=== PATIENT | female | born 1950 | race Caucasian/White ===

== ENCOUNTER → 2024-08-25 06:17 | Outpatient (REF) | payer MEDICARE, BC, SELFPAY | LOC: RAD 06:17 | PROVIDERS: ATTENDING PHYSICIAN Internal Medicine Cardiovascular Disease; FAMILY PHYSICIAN Family Medicine | DX: I65.23 Occlusion and stenosis of bilateral carotid arteries (principal); Z98.890 Other specified postprocedural states; I25.10 Atherosclerotic heart disease of native coronary artery without angina pectoris | CPT/HCPCS: 93880; 93922 ==

== ENCOUNTER → 2025-02-28 08:46 | Outpatient (REF) | payer MEDICARE, BC, SELFPAY | LOC: HWRCS 08:46 | PROVIDERS: ATTENDING PHYSICIAN Family Medicine | DX: J18.9 Pneumonia, unspecified organism (principal) | CPT/HCPCS: 93306 ==

== ENCOUNTER 2025-06-16 22:09 | Inpatient (IN) | payer MEDICARE, BC, SELFPAY ==
[2025-06-16 18:50] VITALS: BP 149/70
[2025-06-16 19:07] VITALS: BP 181/73
[2025-06-16 19:10] VITALS: BMI 30.8
--- NOTE | 2025-06-16 19:14 | ED.GENMED ---
History of Present Illness
<Jeffery Hernández PA-C - Last Filed: 06/16/25 21:23>
General
Chief Complaint: Breathing Problem
Source: patient
Exam Limitations: none
Time Seen by Provider: 06/16/25 19:02
History of Present Illness
History of Present Illness:
74-year-old female presents with increased leg swelling and shortness of breath worsening over the past 5 to 6 days. She has a history of primary biliary cirrhosis, Sjogren's, Jose's, CAD, hypertension and kidney transplant. She has been on
and off different blood pressure medicines include losartan nifedipine now olmesartan and hydrochlorothiazide. Due to the swelling, her family doctor started her on Lasix yesterday she took 20 yesterday and 20 today without any relief. She
describes orthopnea. She denies a fever. No chest pain. No other complaints
Past History
<Jeffery Hernández PA-C - Last Filed: 06/16/25 21:23>
Past History
ED Past Medical History: None
ED Past Surgical History: None
Social History
Tobacco: Non-smoker
Alcohol: None
Drug: None
Personal:
Living: with family
Phy Exam
<CLAIR Piper Last Filed: 06/16/25 21:23>
Physical Exam
Physical Exam:
General: Well-appearing female with increased work of breathing
HEENT normal cephalic atraumatic
Heart: Regular rate and rhythm lungs: Mostly clear no obvious wheeze or rails
Abdomen is soft nontender extremities: Pitting edema bilateral lower extremities
Skin is warm no rash
Scores
<Jeffery Hernández PA-C - Last Filed: 06/16/25 21:23>
Heart Failure Risk
Heart Failure Risk Score: Not Applicable
Course
<Jeffery Hernández PA-C - Last Filed: 06/16/25 21:23>
Orders/Labs/Results
Orders:
Orders
06/16/25 19:00
Electrocardiogram (*1) Urgent
Reason for Study: Shortness of Breath
06/16/25 19:01
EKG- Treatment ONCE
06/16/25 19:12
CR Chest Portable - 1 View Urgent
Comment:
Reason For Exam: sob
Reason Study Needs to be Portable: Patient Unstable
06/16/25 19:20
COVID-19 Antigen Urgent
Source: Nasal Swab
Complete Blood Count/With Diff Urgent
Comprehensive Metabolic Panel Urgent
NT-proBNP Urgent
Troponin I Urgent
Influenza A+B Rapid Molecular Urgent
SUKHI Source: Nasal Swab
Specimen Description:
06/16/25 20:43
Bladder Scan- Treatment ONCE
06/16/25 20:44
CT Abd/pel Without Iv Or Oral Urgent
Comment:
Reason For Exam: everton
Furosemide [Lasix] 40 mg IV NOW STA
06/16/25 21:14
PTT Urgent
Comment: Obtain baseline before beginning heparin infusion if not already collected
Aspirin 325 mg PO NOW STA
Heparin 4,000 units IV NOW STA
Pharmacy Request to Place See Dose Instructions PO NOW STA
Discontinue all Active Warfarin orders?: Yes
Nursing to Place Non Medication Order As Directed
Physician Order: PTT 6 hours after initial start of Heparin infusion
06/16/25 21:15
Heparin 05464 Units/250 ml 25,000 units in 250 ml IV PER PROTOCOL
Weight to be used for heparin protocol in kilograms (kg):: 66.8
Protocol:: Cardiac Tx/Acute Coronary
PTT Goal Range to be used:: PTT 73 to 111 seconds
Order type:: Initial
INITIAL Infusion Dose (UNITS/KG/hr) & then follow protocol:: 12 units/kg/hr
Infusion Dose in UNITS/hr & then follow protocol (UNITS/hr):: 800
INFUSION RATE in mL/hr & then follow protocol (mL/hr):: 8
PTT less than or equal to 64 seconds:: Increase rate by 200 units/hr (+ 2 mL/hr)
PTT 64.1 to 72.9 seconds:: Increase rate by 100 units/hr (+ 1 mL/hr)
PTT 73 to 111 seconds:: Target Range. No change in rate.
PTT 111.1 to 130.9 seconds:: Decrease rate by 100 units/hr (- 1 mL/hr)
PTT 131 to 199.9 seconds:: HOLD for 1 hr. Then decrease rate by 200 units/hr (- 2 mL/hr)
PTT greater than or equal to 200 seconds:: HOLD for 2 hrs & Notify Provider. Then decrease by 200 units/hr (-
2 mL/hr)
Lab follow-up:: Each change, PTT q6h until 2 consecutive are therapeutic. Then PTT
daily.
06/16/25 22:[address] See Dose Instructions IV DIRECTED
Abnormal Lab Results
06/16/25
19:20
WBC 11.0 H 10^3/uL
(4.8-10.8)
RBC 3.11 L 10^6/uL
(4.20-5.40)
Hgb 8.9 L g/dL
(12.0-16.0)
Hct 27.3 L %
(37.0-47.0)
MCHC 32.6 L g/dL
(33.0-37.0)
MPV 11.0 H fL
(7.4-10.4)
Absolute Neuts (auto) 8.1 H 10^3/uL
(1.4-6.5)
Absolute Monos (auto) 1.0 H 10^3/uL
(0.1-0.6)
Lymphocytes % 12.1 L %
(20.5-51.1)
Chloride 108 H mmol/L
(98-107)
BUN 55 H mg/dl
(7-17)
Creatinine 3.0 H mg/dL
(0.6-1.0)
Glucose 146 H mg/dl
(70-99)
Troponin I 6.360 H* ng/ml
Total Protein 5.8 L g/dl
(6.3-8.2)
Albumin 3.1 L g/dl
(3.5-5.0)
06/16/25 19:20
06/16/25 19:20
Vital Signs
Initial and Last Documented VS:
Initial Vital Signs
Temp Pulse Resp BP Pulse Ox
98.0 F 69 24 149/70 97
06/16/25 18:50 06/16/25 18:50 06/16/25 18:50 06/16/25 18:50 06/16/25 18:50
Last Documented Vital Signs
Temp Pulse Resp BP Pulse Ox
98.0 F 69 16 163/68 98
06/16/25 18:50 06/16/25 21:03 06/16/25 20:45 06/16/25 21:03 06/16/25 20:45
<Marek H. Kim, DO - Last Filed: 06/16/25 21:01>
Orders/Labs/Results
Orders:
Orders
06/16/25 19:00
Electrocardiogram (*1) Urgent
Reason for Study: Shortness of Breath
06/16/25 19:01
EKG- Treatment ONCE
06/16/25 19:12
CR Chest Portable - 1 View Urgent
Comment:
Reason For Exam: sob
Reason Study Needs to be Portable: Patient Unstable
06/16/25 19:20
COVID-19 Antigen Urgent
Source: Nasal Swab
Complete Blood Count/With Diff Urgent
Comprehensive Metabolic Panel Urgent
NT-proBNP Urgent
Troponin I Urgent
Influenza A+B Rapid Molecular Urgent
SUKHI Source: Nasal Swab
Specimen Description:
06/16/25 20:43
Bladder Scan- Treatment ONCE
06/16/25 20:44
CT Abd/pel Without Iv Or Oral Urgent
Comment:
Reason For Exam: everton
Furosemide [Lasix] 40 mg IV NOW STA
06/16/25 21:14
PTT Urgent
Comment: Obtain baseline before beginning heparin infusion if not already collected
Aspirin 325 mg PO NOW STA
Heparin 4,000 units IV NOW STA
Pharmacy Request to Place See Dose Instructions PO NOW STA
Discontinue all Active Warfarin orders?: Yes
Nursing to Place Non Medication Order As Directed
Physician Order: PTT 6 hours after initial start of Heparin infusion
06/16/25 21:15
Heparin [id number] Units/250 ml 25,000 units in 250 ml IV PER PROTOCOL
Weight to be used for heparin protocol in kilograms (kg):: 66.8
Protocol:: Cardiac Tx/Acute Coronary
PTT Goal Range to be used:: PTT 73 to 111 seconds
Order type:: Initial
INITIAL Infusion Dose (UNITS/KG/hr) & then follow protocol:: 12 units/kg/hr
Infusion Dose in UNITS/hr & then follow protocol (UNITS/hr):: 800
INFUSION RATE in mL/hr & then follow protocol (mL/hr):: 8
PTT less than or equal to 64 seconds:: Increase rate by 200 units/hr (+ 2 mL/hr)
PTT 64.1 to 72.9 seconds:: Increase rate by 100 units/hr (+ 1 mL/hr)
PTT 73 to 111 seconds:: Target Range. No change in rate.
PTT 111.1 to 130.9 seconds:: Decrease rate by 100 units/hr (- 1 mL/hr)
PTT 131 to 199.9 seconds:: HOLD for 1 hr. Then decrease rate by 200 units/hr (- 2 mL/hr)
PTT greater than or equal to 200 seconds:: HOLD for 2 hrs & Notify Provider. Then decrease by 200 units/hr (-
2 mL/hr)
Lab follow-up:: Each change, PTT q6h until 2 consecutive are therapeutic. Then PTT
daily.
06/16/25 22:[address] See Dose Instructions IV DIRECTED
Abnormal Lab Results
06/16/25
19:20
WBC 11.0 H 10^3/uL
(4.8-10.8)
RBC 3.11 L 10^6/uL
(4.20-5.40)
Hgb 8.9 L g/dL
(12.0-16.0)
Hct 27.3 L %
(37.0-47.0)
MCHC 32.6 L g/dL
(33.0-37.0)
MPV 11.0 H fL
(7.4-10.4)
Absolute Neuts (auto) 8.1 H 10^3/uL
(1.4-6.5)
Absolute Monos (auto) 1.0 H 10^3/uL
(0.1-0.6)
Lymphocytes % 12.1 L %
(20.5-51.1)
Chloride 108 H mmol/L
(98-107)
BUN 55 H mg/dl
(7-17)
Creatinine 3.0 H mg/dL
(0.6-1.0)
Glucose 146 H mg/dl
(70-99)
Troponin I 6.360 H* ng/ml
Total Protein 5.8 L g/dl
(6.3-8.2)
Albumin 3.1 L g/dl
(3.5-5.0)
06/16/25 19:20
06/16/25 19:20
Vital Signs
Initial and Last Documented VS:
Initial Vital Signs
Temp Pulse Resp BP Pulse Ox
98.0 F 69 24 149/70 97
06/16/25 18:50 06/16/25 18:50 06/16/25 18:50 06/16/25 18:50 06/16/25 18:50
Last Documented Vital Signs
Temp Pulse Resp BP Pulse Ox
98.0 F 69 16 163/68 98
06/16/25 18:50 06/16/25 21:03 06/16/25 20:45 06/16/25 21:03 06/16/25 20:45
<Jeffery Hernández PA-C - Last Filed: 06/16/25 21:23>
MDM/Problems Addressed
Differential Diagnosis Includes:
Patient here with shortness of breath and leg swelling. Consider volume overload, CHF, CAD, COVID or flu or pneumonia. Chest x-ray ordered will check labs. EKG shows sinus rhythm with a rate of 70 no acute ischemic changes noted
<Jeffery Hernández PA-C - Last Filed: 06/16/25 21:23>
*Pulse Oximetry
SaO2: 97
Oxygen Mode of Delivery: Room air
Patient hypoxic: no
*Critical Care Note
Total Time (30-74mins, 75-104mins- exclusive of procedures): Not Applicable
<Jeffery Hernández PA-C - Last Filed: 06/16/25 21:23>
Update Note
Update Note:
Workup reviewed. BNP is over 27,000. Troponin is elevated at 6.36. Discussed with emergency room attending as well as cardiology, Dr. Winn. Lasix was ordered for CHF. Heparin was also ordered with aspirin. Cardiology prefers to trend the
troponin and if going down heparin can be stopped. Patient was admitted to hospital for CHF
ED Attending Note
<Jeffery Hernández PA-C - Last Filed: 06/16/25 21:23>
-
Portions of this chart may have been created with voice recognition software.� Occasional wrong word or��sound alike� substitutions may have occurred due to the inherent limitations of voice recognition software.
<Marek Alvarez DO - Last Filed: 06/16/25 21:01>
ED Attending Note
Patient seen and examined by attending physician: Yes
I performed the substantive portion of visit, reviewed & personally made and approve the management plan that is documented in note by myself or CLIVE.: Yes
ED Attending Note:
I agree with Armin's note
Patient presents complaining of increasing shortness of breath. Patient began noticing shortness of breath on Friday and symptoms have progressed each day since then. She cannot sleep because she cannot lie flat. She is only able to breathe
more comfortably when she is sitting up. Patient has a history of a kidney transplant in 2008. She has had an elevated creatinine recently. She is followed by Dr Velarde.patient also sees Dr. Beatris Chandler for cardiology. Patient had some
medication adjustments over the past few weeks due to some peripheral edema. She was started on Lasix yesterday by her primary care provider. She did not notice any change but only had a dose or 2. No chest pain.
General: Awake, Alert, Oriented X3. No acute distress.
Vitals: unremarkable
Head: Atraumatic
Eyes: Pupils equal, EOMI
Throat: Airway intact, no exudates
Neck: Trachea midline
Lungs: Crackles bilaterally
Heart: Regular rate, no murmurs
Abd: Soft, Nontender, No pulsatile mass
Neuro: Nonfocal
Skin: Warm, dry, no rash
Extremities: pulses equal b/l, 2+ edema
No acute ischemic changes on her EKG. Essentially unchanged previous EKG. Labs show mild anemia with a hemoglobin 8.9. Her BUN and creatinine are elevated 55 and 3.0. This appears to be higher than her most recent creatinine as an outpatient
based upon her report. BN P is greater than 27,000. Troponin noted to be quite elevated at 6.3. Without any ischemic changes on her EKG this may be related to heart strain and renal insufficiency. Elise discussed with cardiology whether we
should anticoagulate or not. Will certainly start IV diuresis. Patient will obviously require hospitalization
Discharge Plan
Departure
Patient Disposition: Admit
Date of Disposition: 06/16/25
Time of Disposition: 21:22
Presentation/result/management discussed w/ accepting MD/DO: Hospitalist
Discharge Problem:
CHF (congestive heart failure)
Prescriptions:
No Action
carvedilol [Coreg] 25 MG tablet
25 mg PO BID
esomeprazole magnesium [Nexium] 40 MG capsule,delayed release(DR/EC)
40 mg PO .DAILY AT 1900
cevimeline [Evoxac] 30 MG capsule
30 mg PO TID
lysine [L-Lysine] 500 MG tablet
500 mg PO .DAILY AT 1900
cyclosporine [Restasis] 1 EACH dropperette
1 ea BOTH EYES BID
cetirizine 10 MG tablet
10 mg PO .DAILY AT 1900
alendronate 35 MG tablet
35 mg PO .EVERY FRIDAY
levothyroxine 88 MCG tablet
88 mcg PO DAILY
fluticasone propionate 1 SPRAY spray,suspension
1 spray intranasal BID
tacrolimus 0.5 MG capsule
1 cap PO .DAILY AT 1900
tacrolimus 0.5 MG capsule
2 cap PO .DAILY IN A.M.
mycophenolate sodium [Myfortic] 180 MG tablet,delayed release (DR/EC)
3 tab PO BID
ursodiol [JEANCARLOS Forte] 500 MG tablet
500 mg PO BID
[place]ock 3-6-9 Complex Softgel
3 cap PO BID
Slow Fe
1 tab PO .DAILY AT 1900
Vitamin B Complex
1 cap PO .DAILY AT 1900
calcitriol 0.25 MCG capsule
1 tab PO .MON/FRI/FRI
amlodipine 5 MG tablet
5 mg PO BID Qty: 0 0RF
aspirin 325 MG tablet,delayed release (DR/EC)
325 mg PO DAILY Qty: 0 0RF
losartan [Cozaar] 50 MG tablet
50 mg PO BID Qty: 60 0RF
Referrals:
Luigi Griffith MD [Family Provider, Family Practice]
Interventions
Interventions:
*Risk Screen - Suicide Last Done: 06/16/25 18:50
*General Assessment Last Done: 06/16/25 19:10
*Neglect/Abuse Screening Last Done: 06/16/25 18:50
*ED- Fall Risk Assessment Last Done: 06/16/25 19:10
*ED COVID-19 Vaccine History Last Done: 06/16/25 19:10
*ED Influenza Vaccine History Last Done: 06/16/25 19:10
ED- Cardiac Assessment Last Done: 06/16/25 19:27
ED- Pulmonary Assessment Last Done: 06/16/25 19:27
Discharge Date and Time
Print Language: TAJIK
[2025-06-16 19:43] LABS: Hematocrit 27.3 % (37.0-47.0); Hemoglobin 8.9 g/dL (12.0-16.0); Mean Corp Hgb Conc. 32.6 g/dL (33.0-37.0); Mean Corpuscular Volume 87.8 fL (81.0-99.0); Nucleated Red Blood Cells % 0 %; Platelet Count 215 10^3/uL (130-400); Red Cell Dist. Width 13.4 % (11.5-14.5)
[2025-06-16 19:46] LABS: COVID-19 Antigen Negative (Negative)
[2025-06-16 19:57] LABS: ALT (SGPT) 21 U/L (0-35); AST (SGOT) 28 U/L (14-36); Albumin 3.1 g/dl (3.5-5.0); Alkaline Phosphatase 69 U/L (38-126); Blood Urea Nitrogen 55 mg/dl (7-17); Calcium 8.8 mg/dl (8.4-10.2); Carbon Dioxide 26 mmol/L (22-30); Chloride 108 mmol/L (98-107); Estimated Creatinine Clearance 13 ml/min; Glucose 146 mg/dl (70-99); Potassium 4.0 mmol/L (3.5-5.1); Sodium 137 mmol/L (135-145); Total Protein 5.8 g/dl (6.3-8.2); eGFR 15.82
[2025-06-16 20:00] VITALS: BP 138/61
[2025-06-16 20:18] LABS: Troponin I 6.360 ng/ml
[2025-06-16 21:03] VITALS: BP 163/68
[2025-06-16] MEDS: LASIX 40 MG IV (21:03)
[2025-06-16] MEDS: ASPIRIN 325 MG PO (21:22)
[2025-06-16] MEDS: HEPARIN 25000 UNITS/250 ML IV (21:52)
[2025-06-16] MEDS: HEPARIN 4000 UNITS IV (21:52)
--- NOTE | 2025-06-16 22:02 | HPS.HSE ---
Family Physician
-
Family Physician: Luigi Griffith
Chief Complaint
-
SOB, Swelling
History of Present Illness
Patient is a 74y F with PMH significant for CKD IV s/p renal transplant, ASCVD and hypertension who presents to ED complaining of LE swelling and SOB. Patient states that her symptoms started Friday and have been progressive since that time.
Patiet states that her BP medications were changed about one week prior to these symptoms. She notes a similar episode with addition of nifedipine a few years ago. This resolved with cessation of that medication.
Patient states that her losartan was changed to olmesartan and hydralazine about 2 weeks ago. Since the beginning of this week, she has returned to her prior regimen of losartan.
Patient denies any other recent medication changes.
She denies any chest pain. She has a cough - which is also new / worse since this past weekend.
She denies any fevers / chills, no GI complaints.
She has noted decreased frequency / volume of urination for the past 4-5 days as well.
Medical History
Past Medical History
Past Medical History: Reports Other
Additional Past Medical History:
Polycystic Kidney Disease s/p Renal Transplant
CKD IV
Hypertension
Primary Biliary Cirrhosis
Sjogren's Disease
ASCVD (CAD, Carotid Disease)
HFrEF
GAVE, GERD, Blackburn's Esophagus
Hypothyroidism
Jose's Thyroiditis
Iron Deficiency Anemia
Diverticular Disease
Past Surgical History: Reports Other
Additional Past Surgical History:
Renal Transplant (2008)
Right CEA
LUE AVF / Subsequent AVF Ligation
Skin Cancer Excisions
Cholecystectomy
Carpal Tunnel Release
Social History
Tobacco: Non-smoker
Alcohol: None
Drug: None
Family History
Family History: Not pertinent
Allergies / Home Medications
Allergies reflects when Allergies were last updated in [facility].
Home Medications with original date entered in [facility]
Allergy/Medication List:
Allergies
Allergy/AdvReac Type Severity Reaction Status Date / Time
No Known Drug Allergies Allergy NKDA Verified 06/16/25 18:50
Home Medications
cyclosporine 0.05 % eye drops in a dropperette (Restasis) 1 ea BOTH EYES BID 08/10/08
esomeprazole magnesium 40 mg capsule,delayed release (Nexium) [place] [address]/10/08
lysine 500 mg tablet (L-Lysine) 500 [place] .[place] [address]/10/08
fluticasone propionate 50 mcg/actuation nasal spray,suspension 1 spray intranasal DAILY 11/10/13
levothyroxine 88 mcg tablet 88 mcg PO DAILY 11/10/13
tacrolimus 0.5 mg capsule, immediate-release 1 cap PO HS 11/10/13
tacrolimus 0.5 mg capsule, immediate-release 1 cap PO Q OTHER DAY 11/10/13
losartan 50 mg tablet (Cozaar) 50 mg PO BID #60 tabs 11/18/13
Mycophenolate 360 mg PO BID 06/16/25
Vitamin B Complex 1 tab PO DAILY 06/16/25
aspirin 81 mg tablet 81 mg PO DAILY 06/16/25
carvedilol 25 mg tablet 25 mg PO BID 06/16/25
cetirizine 10 mg tablet (Zyrtec) 10 mg PO DAILY 06/16/25
cevimeline 30 mg capsule 1 cap PO TID 06/16/25
cholecalciferol (vitamin D3) 125 mcg (5,000 unit) tablet (Vitamin D3) 125 mcg PO QMWF 06/16/25
magnesium 500 mg PO DAILY 06/16/25
montelukast 10 mg tablet (Singulair) 10 mg PO DAILY 06/16/25
sodium bicarbonate 650 mg PO BID 06/16/25
ursodiol 500 mg tablet 500 mg PO BID 06/16/25
Review of Systems
-
History Source: Patient
A 12 point ROS was completed and negative except as noted: Yes
Constitutional: Reports Fatigue; Denies Fever or Chills
EENT: Denies Sore Throat
Respiratory: Reports Cough and Trouble Breathing; Denies Hemoptysis
Cardiac: Denies Chest Pain, Diaphoresis, Palpitations or Syncope
Abdomen/GI: Denies Abdominal Pain, Nausea, Vomiting or Diarrhea
: Reports Other (Decreased urination); Denies Dysuria, Frequency or Flank Pain
Musculoskeletal: Reports Edema; Denies Joint Pain
Neurological: Denies Dizzy or Headache
Psych: Denies Depression or Anxiety
Physical Exam
Vital Signs
Vital Signs
Temp Pulse Resp BP Pulse Ox
98.0 F 69 16 163/68 98
06/16/25 18:50 06/16/25 21:03 06/16/25 20:45 06/16/25 21:03 06/16/25 20:45
Physical Exam
General: Other (74y F in no acute distress.)
HEENT: Moist mucous membranes, PERRLA and Other (Pos JVD / HJR)
Respiratory: Other (Decreased at bases - otherwise clear.)
Cardiac: S1/S2 and Regular Rhythm; No Murmur
GI: Soft, Non Tender, Non Distended and Normal Bowel Sounds
Musculoskeletal: No Clubbing, No Cyanosis and Other (2+ pitting edema b/l LEs to the mid-story.)
Neuro: AO x 3
Laboratory Results
-
06/16/25 19:20
06/16/25 19:20
Laboratory Results
Total Bilirubin 1.0 mg/dl (0.2-1.3) 06/16/25 19:20
AST 28 U/L (14-36) 06/16/25 19:20
ALT 21 U/L (0-35) 06/16/25 19:20
Alkaline Phosphatase 69 U/L (38-126) 06/16/25 19:20
Troponin I 6.360 ng/ml H* 06/16/25 19:20
Impression/Plan
-
A/P: Patient is a 74y F with PMH significant for CKD s/p renal transplant, ASCVD and hypertension who presents to ED complaining of LE swelling and SOB since this past weekend.
Acute on Chronic HFrEF / Volume Overload
Abnormal Troponin likely secondary to CHF / CKD
- Admit for further evaluation and treatment.
- Increased edema / dyspnea and decreased urine output for the past 5-6 days.
- Continue IV Lasix BID and follow I/Os, daily weights, etc.
- Update Echo - last in 02/2025 with LVEF = 30-35%, not significantly changed from study in 2008.
- Cardiology evaluation for additional recommendations.
- Troponin elevation likely a reflection of CHF + CKD. No current chest pain, etc.
- IV heparin for now per Cardiology recs.
- Follow troponin to peak and stop heparin once down-trending.
MIRLANDE on CKD IV
s/p Renal Transplant
Chronic Metabolic Acidosis
Polycystic Kidney Disease
- SCr = 3 compared to recent baseline of 2.3 (per patient).
- Notes indicate gradual loss of GFR over the past months / years, with discussion re: likelihood of future HD requirements.
- Hold ARB acutely.
- IV diuresis as noted above.
- Nephrology evaluation for additional recommendations.
- Followed locally by Dr. Velarde. Also follows with [facility].
- Continue current anti-rejection med regimen without changes.
- Follow for changes in renal function.
- Outpatient comparison labs, imaging, etc would be beneficial.
Benign Hypertension
- Elevated at present - in part due to volume overload.
- IV diuresis as noted above.
- Follow for improvement.
- Adjust BP med regimen as needed for improved control.
ASCVD
- Prior h/o CAD, carotid disease, etc.
- Continue ASA, carvedilol, etc.
- IV heparin for now / trending troponin as noted above.
- Prior h/o PTCA with balloon angio and no stent.
Hypothyroidism
- Continue current T4 replacement.
- Update TFTs.
GERD / Blackburn's Esophagus / GAVE
- Holding PPI acutely.
- Follow for any new symptoms.
Primary Biliary Cirrhosis
Sjogren's Syndrome
- Stable.
DVT Prophylaxis: On IV heparin at present.
Code Status: Full
[2025-06-16 22:59] LABS: APTT 31.9 Sec (23.4-35.0)
[2025-06-16 23:50] VITALS: BMI 30.1
[2025-06-16 23:51] VITALS: BP 163/80
--- NOTE | 2025-06-17 00:47 | PTCARENOTE ---
A/P: Patient is a 74y F with PMH significant for CKD s/p renal transplant, ASCVD and hypertension who presents to ED complaining of LE swelling and SOB since this past weekend.
Acute on Chronic HFrEF / Volume Overload
Abnormal Troponin likely secondary to CHF / CKD
- Admit for further evaluation and treatment.
- Increased edema / dyspnea and decreased urine output for the past 5-6 days.
- Continue IV Lasix BID and follow I/Os, daily weights, etc.
- Update Echo - last in 02/2025 with LVEF = 30-35%, not significantly changed from study in 2008.
- Cardiology evaluation for additional recommendations.
- Troponin elevation likely a reflection of CHF + CKD. No current chest pain, etc.
- IV heparin for now per Cardiology recs.
- Follow troponin to peak and stop heparin once down-trending.
--- NOTE | 2025-06-17 00:48 | PTCARENOTE ---
Rec'd patient from ER. AAOx3. stable vitals. SOB with activity. SR in 60s on tele. No c/o pain. POC reviewed with patient.
[2025-06-17] MEDS: PROGRAF PO (00:53)
[2025-06-17 02:03] LABS: Troponin I 6.390 ng/ml
[2025-06-17 03:05] VITALS: BP 159/76
[2025-06-17] MEDS: ROBITUSSIN DM 5 ML PO (04:00)
[2025-06-17 04:52] VITALS: BMI 29.4
[2025-06-17 05:02] LABS: APTT 124.0 Sec (23.4-35.0)
[2025-06-17] MEDS: SYNTHROID 88 MCG PO (05:30)
[2025-06-17 06:49] LABS: Troponin I 6.140 ng/ml
[2025-06-17 07:19] VITALS: BP 165/77
[2025-06-17 07:49] LABS: Blood Urea Nitrogen 55 mg/dl (7-17); Calcium 8.5 mg/dl (8.4-10.2); Carbon Dioxide 26 mmol/L (22-30); Chloride 109 mmol/L (98-107); Estimated Creatinine Clearance 13 ml/min; Glucose 94 mg/dl (70-99); HDL Cholesterol 34 mg/dl; Iron 45 ug/dl (37-170); LDL Cholesterol, Calculated 90 mg/dl; Magnesium 1.6 mg/dl (1.6-2.3); Potassium 4.1 mmol/L (3.5-5.1); Sodium 139 mmol/L (135-145); Very Low Density Lipoprotein 24 mg/dl (0-30); eGFR 15.82
[2025-06-17 07:58] LABS: Total Iron Binding Capacity 256 ug/dl (265-497)
[2025-06-17 08:24] LABS: Ferritin 37.9 ng/ml (11.1-264.0)
[2025-06-17] MEDS: URSO 500 MG PO ×2 (09:13→20:14)
[2025-06-17] MEDS: SINGULAIR 10 MG PO (09:14)
[2025-06-17] MEDS: RESTASIS 0.05% OPHTHALMIC EMULSION 1 DROPS BOTH EYES ×2 (09:14→20:15)
[2025-06-17] MEDS: MAGNESIUM OXIDE 400 MG PO (09:14)
[2025-06-17] MEDS: COREG 25 MG PO ×2 (09:14→20:14)
[2025-06-17] MEDS: ASPIR LOW (ENTERIC COATED) 81 MG PO (09:14)
[2025-06-17] MEDS: SODIUM BICARBONATE 650 MG PO ×2 (09:14→20:14)
[2025-06-17] MEDS: LASIX 40 MG IV ×2 (09:15→15:25)
[2025-06-17] MEDS: VITAMIN D3 (cholecalciferol) 125 MCG PO (09:16)
[2025-06-17] MEDS: PROGRAF 0.5 MG PO ×2 (09:16→21:27)
--- NOTE | 2025-06-17 10:36 | W.CON.NEPH ---
Consultation
-
Date/Time Consultation Requested: 06/17/2025 7 AM
Date/Time Consultation Performed: 06/17/2025 10 AM
Requesting Provider: Dr. King
Performing Provider: Dr. Vazquez
Reason for Consultation: Renal transplant
Medical History
-
Chief Complaint: Shortness of breath
History of Present Illness:
This is a 74-year-old female who has history of ADPKD who subsequently underwent living related renal transplant from her brother in 2008. Over time her renal function is slowly declining now at CKD 4 with subnephrotic range proteinuria. She did
have a biopsy which had revealed chronic kidney disease progression. Most recent creatinine in 09.16. At her office visit however she was noted to be significantly hypertensive with systolics close to 200. Her losartan was then changed to
Benicar. Patient states that over the next week she developed significant edema and progressive shortness of breath. She had then discontinued Benicar and hydralazine and gone back to losartan. Unfortunately, her symptoms did not improve when she
came to the emergency room. She was felt to be in pulmonary edema and she was also noted to have elevated troponin at over 6.0. She also had acute kidney injury with a creatinine of 3.0.
Past Medical History
Polycystic Kidney Disease s/p Renal Transplant
CKD IV
Hypertension
Primary Biliary Cirrhosis
Sjogren's Disease
ASCVD (CAD, Carotid Disease)
HFrEF
GAVE, GERD, Blackburn's Esophagus
Hypothyroidism
Jose's Thyroiditis
Iron Deficiency Anemia
Diverticular Disease
Renal Transplant (2009) brother
Right CEA
LUE AVF / Subsequent AVF Ligation
Skin Cancer Excisions
Cholecystectomy
Carpal Tunnel Release
Social History
Tobacco: Non-Smoker
Alcohol: None
Family History
Family History: Not Pertinent
Allergies / Home Medications
Allergy/AdvReac Type Severity Reaction Status Date / Time
No Known Drug Allergies Allergy NKDA Verified 11/27/25 18:50
�Medication �Instructions �Recorded �Confirmed �Type
cyclosporine 0.05 % eye drops in a 1 ea BOTH EYES BID Eye Condition 08/10/08 06/16/25 History
dropperette (Restasis)
esomeprazole magnesium 40 mg 40 mg PO Gastrointestinal Issue 08/10/08 11/16/13 History
capsule,delayed release (Nexium)
lysine 500 mg tablet (L-Lysine) 500 mg PO .DAILY AT 1900 Supplement 08/10/08 06/16/25 History
fluticasone propionate 50 1 spray intranasal DAILY Allergies 11/10/13 06/16/25 History
mcg/actuation nasal
spray,suspension
levothyroxine 88 mcg tablet 88 mcg PO DAILY Thyroid 11/10/13 06/16/25 History
tacrolimus 0.5 mg capsule, 1 cap PO HS Transplant 11/10/13 06/16/25 History
immediate-release
tacrolimus 0.5 mg capsule, 1 cap PO Q OTHER DAY Transplant 11/10/13 06/16/25 History
immediate-release
losartan 50 mg tablet (Cozaar) 50 mg PO BID #60 tabs 11/18/13 06/16/25 Rx
Mycophenolate 360 mg PO BID Transplant 06/16/25 06/16/25 History
Vitamin B Complex 1 tab PO DAILY Supplement 06/16/25 06/16/25 History
aspirin 81 mg tablet 81 mg PO DAILY Blood Clot 06/16/25 06/16/25 History
Prevention/Tx
carvedilol 25 mg tablet 25 mg PO BID Heart Failure 06/16/25 06/16/25 History
cetirizine 10 mg tablet (Zyrtec) 10 mg PO DAILY Allergies 06/16/25 06/16/25 History
cevimeline 30 mg capsule 1 cap PO TID Sjogren 06/16/25 06/16/25 History
cholecalciferol (vitamin D3) 125 125 mcg PO QMWF Supplement 06/16/25 06/16/25 History
mcg (5,000 unit) tablet (Vitamin
D3)
magnesium 500 mg PO DAILY Supplement 06/16/25 06/16/25 History
montelukast 10 mg tablet 10 mg PO DAILY Allergies 06/16/25 06/16/25 History
(Singulair)
sodium bicarbonate 650 mg PO BID Kidney Disease 06/16/25 06/16/25 History
ursodiol 500 mg tablet 500 mg PO BID Urinary Issue 06/16/25 06/16/25 History
Review of Systems
-
Shortness of breath, lower extreme edema
All other systems: Negative unless noted
Physical Exam
Vital Signs
Vital Signs
Temp Pulse Resp BP Pulse Ox
98.6 F 68 16 165/77 96
06/17/25 07:19 06/17/25 09:14 06/17/25 07:19 06/17/25 09:14 06/17/25 08:24
Lab Results
WBC 11.0 10^3/uL (4.8-10.8) H 06/16/25 19:20
RBC 3.11 10^6/uL (4.20-5.40) L 06/16/25 19:20
Hgb 8.9 g/dL (12.0-16.0) L 06/16/25 19:20
Hct 27.3 % (37.0-47.0) L 06/16/25 19:20
Plt Count 215 10^3/uL (130-400) 06/16/25 19:20
Sodium 139 mmol/L (135-145) 06/17/25 06:11
Potassium 4.1 mmol/L (3.5-5.1) 06/17/25 06:11
Chloride 109 mmol/L (98-107) H 06/17/25 06:11
Carbon Dioxide 26 mmol/L (22-30) 06/17/25 06:11
BUN 55 mg/dl (7-17) H 06/17/25 06:11
Creatinine 3.0 mg/dL (0.6-1.0) H 06/17/25 06:11
eGFR 15.82 06/17/25 06:11
Glucose 94 mg/dl (70-99) 06/17/25 06:11
Calcium 8.5 mg/dl (8.4-10.2) 06/17/25 06:11
Phosphorus 3.5 mg/dl (2.5-4.5) 06/17/25 06:11
Ahs-O-Siotyzqashk Pept > 01596 pg/ml 06/16/25 19:20
Albumin 3.1 g/dl (3.5-5.0) L 06/16/25 19:20
CT abdomen pelvis without contrast 06/16/2025
IMPRESSION:
1. Small bilateral pleural effusions, right greater than left with suspected bibasilar subsegmental atelectasis.
2. Low attenuation of the cardiac blood pool relative to myocardium, suggestive of anemia.
3. Findings consistent with autosomal dominant polycystic kidney disease. No significant hydronephrosis or perinephric fluid collection adjacent to the transplant kidney.
4. Colonic diverticulosis without evidence of diverticulitis.
May 30, 2025 creatinine 2.27, iron saturation 18%
Physical Exam
Patient is awake alert oriented and in no distress. Mood and affect were pleasant, insight and judgment were good. Pupils are equal round and reactive to light, extraocular movements are intact, sclera were anicteric. Hearing was normal, ears and
nose are intact. Oropharynx was clear. Neck was supple with trachea midline and no thyromegaly. Heart was regular rate and rhythm without rubs. Lower extremities with 1+ edema. Lungs were clear to auscultation bilaterally and with normal excursion
but Rales at the bases. Abdomen was soft, nontender, with normal active bowel sounds, and no hepatosplenomegaly. Skin was without rash and with normal turgor.
Data Reviewed
-
Radiology: Image Personally Visualized and interpreted (Chest x-ray 06/16/2025 by my reading pulmonary edema)
CT Scan: Report Reviewed by me
Medical Tests (Nuc Med, Echo etc): Image Personally Visualized and interpreted (EKG 06/17/2025 by my reading normal sinus rhythm first-degree AV block left axis deviation left bundle branch block)
Labs: Labs Reviewed by me
Old Records: Reviewed
Assessment/Plan
-
Assessment
Living related renal transplant 2008
CKD 4 with subnephrotic range proteinuria baseline creatinine 2.2
Pulm edema, lower extreme edema
Hypertension
Hypothyroidism
Primary biliary cirrhosis
Sjogren's
MIRLANDE
Heart failure reduced ejection fraction 30% on February 28, 2025 echocardiogram
Plan
Follow BMP
Diuresis with IV Lasix
Heparin drip
Follow troponin
Add hydralazine for hypertension
Hold ARB
[2025-06-17 11:04] VITALS: BP 122/48
--- NOTE | 2025-06-17 11:08 | PTCARENOTE ---
BP this AM was 165/77. Am meds administered, BP rechecked at 122/48.
[2025-06-17] MEDS: APRESOLINE 25 MG PO ×2 (11:09→20:14)
--- NOTE | 2025-06-17 11:19 | W.PN.HOSP.TC ---
Addendum entered and electronically signed by Erik Leavitt DO 06/17/25 12:43:
TSH 6.05.
Free T4 1.60.
Will increase levothyroxine to 100 mcg daily, TSH in 4 weeks as an outpatient.
Original Note:
Today's Communication/Plan
-
Continue diuretics
Echocardiogram
Assessment / Plan
Assessment / Plan
Gen-AAOx3, mildly tachypneic
HEENT-NC, AT, anicteric, clear oral mm
Neck-supple
CV-reg, no M, +S1/S2
Lungs-coarse breath sounds bilaterally
Abd-soft, NT, ND
Ext-no edema
Musculoskeletal-no cyanosis, clubbing
Skin-warm and dry
Neuro-grossly non-focal
Psych-calm, cooperative
Acute on chronic heart failure with reduced EF -continue IV Lasix. Cardiology consulted. Echocardiogram pending.
Chest x-ray with pulmonary edema, small left pleural effusion, small to moderate right pleural effusion.
Does not appear to be on diuretics at home.
MIRLANDE on CKD 4 -baseline creatinine 2.2, admission creatinine 3.0. Etiology of MIRLANDE possibly due to cardiorenal syndrome from heart failure.
Hold losartan.
Troponin elevation -without chest pain. Suspect acute nonischemic myocardial injury. Cardiology consulted. Troponin trending down.
History of living related donor renal transplant -continue immunosuppression.
Polycystic kidney disease
Essential hypertension -elevated blood pressure on admission improving with diuretics.
Hypothyroidism -continue levothyroxine.
CAD
GERD/Blackburn's esophagus/GAVE
Primary biliary cirrhosis
Sj�gren's syndrome
Diverticulosis
Chronic normocytic anemia -hemoglobin at baseline.
Obesity due to excess calories
Full code
Anticipated Discharge: > 48 hours
Subjective/Interval History
-
Date of Service: June 17, 2025
Patient seen and examined. Still short of breath but improved compared to last night. Complaining of dry cough.
Objective Data
-
Labs:
Laboratory Results
06/17/25 06/17/25 06/17/25
03:52 06:11 11:30
APTT 124.0 H Pending
Sodium 139
Potassium 4.1
Chloride 109 H
Carbon Dioxide 26
BUN 55 H
Creatinine 3.0 H
Glucose 94
Calcium 8.5
Vital Signs:
Vital Signs
Temp Pulse Resp BP Pulse Ox
97.6 F 64 16 122/48 95
06/17/25 11:04 06/17/25 11:09 06/17/25 11:04 06/17/25 11:09 06/17/25 11:04
I&O
06/16/25 06/17/25 06/18/25
06:59 06:59 06:59
Intake Total 120 / 120
Output Total 650 / 650
Balance -530 / -530
Review of Systems
-
History Source: Patient
All other systems: Reviewed and negative
--- NOTE | 2025-06-17 11:51 | CON.CAR ---
Addendum entered and electronically signed by Sorin Winn MD 06/17/25 16:06:
I reviewed and agree with the note by BEULAH and it accurately reflects our care.
I saw and evaluated the patient, and I provided the substantive portion of the medical decision making. My assessment and plan is below:
74-year-old female with coronary artery disease, ischemic cardiomyopathy (LVEF 30-35%), CKD who presents with shortness of breath and 10 pound weight gain. She was also found to have elevated troponin on admission. Cardiology is consulted for CHF
exacerbation and troponin elevation. Patient tells me that her shortness of breath and lower extremity edema have improved since admission. She denies chest pain, palpitations, or lightheadedness/dizziness.
Physical exam: RRR, systolic murmur, trace lower extremity edema bilaterally, crackles at bilateral lung bases
CXR: Interstitial pulmonary edema with bilateral pleural effusions
TTE: LVEF 30-35%, mid to apical septum and apex are aneurysmal, hypokinesis of the mid to apical anterior, lateral, and inferior mixon, mild/mod TR, PASP 91 mmHg
Labs notable for troponin 6.36 -> 6.39 -> 6.14 -> 5.46. proBNP >27k
Acute on chronic HFrEF: Continue IV diuresis. Monitor creatinine closely given MIRLANDE on CKD. Nephrology following. Continue GDMT with home carvedilol. Other GDMT held in the setting of MIRLANDE on CKD. Hydralazine added.
Type II DC: Suspect due to demand in the setting of CHF exacerbation. She also has MIRLANDE on CKD which is likely why troponin is not clearing. ECG with inferolateral ST depressions. She has no chest pain. Continue IV heparin, aspirin, and
beta-bobbi. Okay to stop trending troponin. Echocardiogram fortunately unchanged from prior.
Original Note:
Consultation
Consultation Request
Date/Time Consultation Requested: 06/17/2025 00:00
Date/Time Consultation Performed: 06/17/2025 12:00
Requesting Provider: Dr. King
Performing Provider: BEULAH Bhatt for Dr. Winn
Reason for Consultation: Acute on chronic heart failure
Medical History
-
Chief Complaint: Shortness of breath
History of Present Illness:
Angelina Teran is a 74-year-old female (formerly known to Dr. 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, her primary yarding supervisor), with CAD (severe disease not deemed intervenable with PCI due to history of GIB), ICM (LVEF 30-35%), Sjogren's, PKD renal
transplant now with CKD, MARCELLO s/p right CEA with moderate disease on the left, and first-degree AV block presented to the emergency department with a chief complaint of shortness of breath. She reports mild shortness of breath that started 5 to 6
days ago. It progressively got worse and she now has associated bilateral lower extremity edema. She endorses orthopnea without PND. She is not having any chest pain.
Past Medical History
Past Medical History: CAD, CHF (ICM), Renal Failure (PKD status post living donor, now with CKD) and Other (Sjogren's, MARCELLO s/p right CEA)
Past Surgical History: Cholecystectomy and Other (Renal transplant 2008, right CEA 2013)
Social History
Tobacco: Non-Smoker
Alcohol: None
Drug: None
Living: With Family
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
Family History
Family History: CAD (Father with DC at age 63, now ) and Other (PKD and 2 brothers and mother.)
Allergies / Home Medications
Allergy/AdvReac Type Severity Reaction Status Date / Time
No Known Drug Allergies Allergy NKDA Verified 06/16/25 18:50
�Medication �Instructions �Recorded �Confirmed �Type
cyclosporine 0.05 % eye drops in a 1 ea BOTH EYES BID Eye Condition 08/10/08 06/16/25 History
dropperette (Restasis)
esomeprazole magnesium 40 mg 40 mg PO Gastrointestinal Issue 08/10/08 11/16/13 History
capsule,delayed release (Nexium)
lysine 500 mg tablet (L-Lysine) 500 mg PO .DAILY AT 1900 Supplement 08/10/08 06/16/25 History
fluticasone propionate 50 1 spray intranasal DAILY Allergies 11/10/13 06/16/25 History
mcg/actuation nasal
spray,suspension
levothyroxine 88 mcg tablet 88 mcg PO DAILY Thyroid 11/10/13 06/16/25 History
tacrolimus 0.5 mg capsule, 1 cap PO HS Transplant 11/10/13 06/16/25 History
immediate-release
tacrolimus 0.5 mg capsule, 1 cap PO Q OTHER DAY Transplant 11/10/13 06/16/25 History
immediate-release
losartan 50 mg tablet (Cozaar) 50 mg PO BID #60 tabs 11/18/13 06/16/25 Rx
Mycophenolate 360 mg PO BID Transplant 06/16/25 06/16/25 History
Vitamin B Complex 1 tab PO DAILY Supplement 06/16/25 06/16/25 History
aspirin 81 mg tablet 81 mg PO DAILY Blood Clot 06/16/25 06/16/25 History
Prevention/Tx
carvedilol 25 mg tablet 25 mg PO BID Heart Failure 06/16/25 06/16/25 History
cetirizine 10 mg tablet (Zyrtec) 10 mg PO DAILY Allergies 06/16/25 06/16/25 History
cevimeline 30 mg capsule 1 cap PO TID Sjogren 06/16/25 06/16/25 History
cholecalciferol (vitamin D3) 125 125 mcg PO QMWF Supplement 06/16/25 06/16/25 History
mcg (5,000 unit) tablet (Vitamin
D3)
magnesium 500 mg PO DAILY Supplement 06/16/25 06/16/25 History
montelukast 10 mg tablet 10 mg PO DAILY Allergies 06/16/25 06/16/25 History
(Singulair)
sodium bicarbonate 650 mg PO BID Kidney Disease 06/16/25 06/16/25 History
ursodiol 500 mg tablet 500 mg PO BID Urinary Issue 06/16/25 06/16/25 History
Review of Systems
-
History Source: Patient
All other systems: Negative unless noted
Constitutional: Weight Gain
EENT: No Symptoms
Respiratory: Trouble Breathing
Cardiac: No Symptoms
Abdomen/GI: No Symptoms
: No Symptoms
Musculoskeletal: No Symptoms
Skin: No Symptoms
Neurological: No Symptoms
Endocrine: No Symptoms
Hematologic/Lymphatic: No Symptoms
Physical Exam
Vital Signs
Temp Pulse Resp BP Pulse Ox
97.6 F 64 16 122/48 95
06/17/25 11:04 06/17/25 11:09 06/17/25 11:04 06/17/25 11:09 06/17/25 11:04
Lab Results
06/16/25 19:20
06/17/25 06:11
Troponin I 6.140 ng/ml H* 06/17/25 06:11
Lmc-C-Ksnbmhqycuu Pept > 36411 pg/ml 06/16/25 19:20
Physical Exam
General: Well Developed, Well Nourished and No Apparent Distress
HEENT: Normocephalic, Anicteric and Moist Mucous Membranes
Respiratory: Crackles and Non Labored Respirations
Impression / Plan
-
I/P: 74F with CAD (severe disease not deemed intervenable with PCI due to history of GIB), ICM (LVEF 30-35%), Sjogren's, PKD renal transplant now with CKD, MARCELLO s/p right CEA with moderate disease on the left, and first-degree AV block presented to
the emergency department with a chief complaint of shortness of breath.
Primary yarding supervisor: formerly known to Dr. 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
HFrEF (LVEF 30-35%) acute on chronic
Ischemic cardiomyopathy
- CT with small bilateral pleural effusions, proBNP >27,000 (creatinine 3.0), and an exam consistent with volume overload
- Diuresis with furosemide 40 mg IV twice daily, this requires intensive monitoring further titration by nephrology given renal issues as below
- GDMT is currently limited due to renal function, continue carvedilol 25 mg twice daily
- Update echocardiogram
- Trend daily weight, I/O, and BMP with diuresis
- Heart failure education
Abnormal troponin
- Peak troponin 6.390
- Chest pain free
Coronary artery disease
- S/p LAD angioplasty 2004 (no stenting due to active GIB)
- 2008 catheterization with MV CAD (80-90% mid LAD and moderate disease in the OM and PDA)
- Stress test in 2021 showed mild ischemia, limited benefit given poor candidate for DAPT and CKD with renal transplant
MIRLANDE on chronic kidney disease stage IV
- PKD status post living donor now with CKD
- Follows with nephrology
Carotid artery stenosis, s/p right CEA, left carotid with >70% stenosis
Hypertension, BP well above goal at last nephrology OV
Hypercholesterolemia with statin intolerance, LDL above goal, consider PCSK9 eye as an outpatient
GERD/Blackburn's esophagus/GAVE
Sjogren's
Data Reviewed
-
EKG: Report Reviewed by me
Radiology: Report Reviewed by me
Medical Tests (Nuc Med, Echo etc): Report Reviewed by me
Labs: Labs Reviewed by me
Old Records: Reviewed
[2025-06-17 12:15] LABS: APTT 68.3 Sec (23.4-35.0)
--- NOTE | 2025-06-17 12:23 | CM ---
CM following re: discharge planning.
Reviewed pt's chart, met with pt and pt's at bedside.
Pt is a 74 year old female, admitted with primary dx of Acute on Chronic HFrEF / Volume Overload.
Pt reports she lives with 2SH, 2 steps to enter, has no children. Pt described herself as independent in all areas [employer]. No DME, VN or SNF history. Pt expressed her desire to return back home at discharge with no needs anticipated.
D/C plan: home with family. to transport.
[2025-06-17 12:34] LABS: Troponin I 5.460 ng/ml
[2025-06-17] MEDS: MYFORTIC DELAYED REL. 360 MG PO ×2 (15:23→21:27)
[2025-06-17 15:29] VITALS: BP 126/93
[2025-06-17] MEDS: MUCINEX 600 MG PO (18:03)
[2025-06-17 19:26] VITALS: BP 121/39
[2025-06-17 20:28] LABS: APTT 82.5 Sec (23.4-35.0)
[2025-06-17 23:15] VITALS: BP 113/38
[2025-06-18 02:49] LABS: APTT 92.2 Sec (23.4-35.0)
[2025-06-18 02:52] VITALS: BP 127/54
[2025-06-18] MEDS: SYNTHROID 100 MCG PO (05:12)
[2025-06-18 05:18] VITALS: BMI 29.3
[2025-06-18] MEDS: HEPARIN 25000 UNITS/250 ML IV (05:24)
[2025-06-18 06:54] LABS: APTT 66.2 Sec (23.4-35.0)
[2025-06-18 07:11] LABS: Blood Urea Nitrogen 54 mg/dl (7-17); Calcium 8.3 mg/dl (8.4-10.2); Carbon Dioxide 26 mmol/L (22-30); Chloride 107 mmol/L (98-107); Estimated Creatinine Clearance 13 ml/min; Glucose 93 mg/dl (70-99); Potassium 4.5 mmol/L (3.5-5.1); Sodium 136 mmol/L (135-145); eGFR 16.48
[2025-06-18 07:51] LABS: Hematocrit 23.5 % (37.0-47.0); Hemoglobin 7.9 g/dL (12.0-16.0); Mean Corp Hgb Conc. 33.6 g/dL (33.0-37.0); Mean Corpuscular Volume 88.7 fL (81.0-99.0); Platelet Count 169 10^3/uL (130-400); Red Cell Dist. Width 13.3 % (11.5-14.5)
[2025-06-18 08:03] VITALS: BP 175/66
[2025-06-18] MEDS: LASIX 40 MG IV (09:38)
[2025-06-18] MEDS: SODIUM BICARBONATE 650 MG PO ×2 (09:39→19:31)
[2025-06-18] MEDS: MAGNESIUM OXIDE 400 MG PO (09:39)
[2025-06-18] MEDS: RESTASIS 0.05% OPHTHALMIC EMULSION 1 DROPS BOTH EYES ×2 (09:39→19:31)
[2025-06-18] MEDS: APRESOLINE 25 MG PO ×2 (09:39→19:31)
[2025-06-18] MEDS: URSO 500 MG PO ×2 (09:39→19:30)
[2025-06-18] MEDS: SINGULAIR 10 MG PO (09:39)
[2025-06-18] MEDS: ASPIR LOW (ENTERIC COATED) 81 MG PO (09:39)
[2025-06-18] MEDS: COREG 25 MG PO ×2 (09:39→19:31)
[2025-06-18] MEDS: MYFORTIC DELAYED REL. 360 MG PO ×2 (09:40→19:32)
[2025-06-18] MEDS: FLUSH (NSS) 2 FLUSH IV ×2 (09:42→16:59)
--- NOTE | 2025-06-18 11:08 | W.PN.HOSP.TC ---
Addendum entered and electronically signed by Erik Leavitt DO 06/18/25 12:21:
Cardio ok with stopping IV Heparin 48hrs after start.
Original Note:
Today's Communication/Plan
-
Continue diuretics
Prednisone
Nebs
Mucinex, Tessalon
Assessment / Plan
Assessment / Plan
Gen-AAOx3, mildly tachypneic
HEENT-NC, AT, anicteric, clear oral mm
Neck-supple
CV-reg, no M, +S1/S2
Lungs-coarse breath sounds bilaterally
Abd-soft, NT, ND
Ext-no edema
Musculoskeletal-no cyanosis, clubbing
Skin-warm and dry
Neuro-grossly non-focal
Psych-calm, cooperative
Acute on chronic heart failure with reduced EF -continue IV Lasix. Cardiology consulted. Echocardiogram shows LVEF 30 to 35%, mid to apical septum and apex aneurysmal. Hypokinesis of the mid to apical anterior, lateral, inferior mixon. Mild to
moderate TR. Severely elevated PASP, 91 mmHg.
Does not appear to be on diuretics at home.
Repeat two-view chest x-ray done 06/18 shows severe acute pulmonary edema. Small bilateral pleural effusions. Moderate cardiomegaly.
Acute bronchitis -with cough, wheezing. Appears to be worsening. Likely viral syndrome. Add prednisone, nebs. Continue Mucinex. Add Tessalon Perles.
No evidence of pneumonia on chest x-ray from today. Not hypoxic, not requiring oxygen.
MIRLANDE on CKD 4 -baseline creatinine 2.2, admission creatinine 3.0. Creatinine 2.9 today. Etiology of MIRLANDE possibly due to cardiorenal syndrome from heart failure.
Hold losartan.
Spoke with nephrology, appears to have progressive kidney disease of her transplant. No evidence of rejection on biopsy previously.
Troponin elevation -without chest pain. Cardiology feels that she may have type II SD due to demand in the setting of heart failure exacerbation.
Troponin trending down. Defer IV heparin to cardiology.
History of living related donor renal transplant -continue immunosuppression.
Polycystic kidney disease
Essential hypertension -blood pressures somewhat labile. Continue current meds.
Hypothyroidism -continue levothyroxine.
TSH 6.05, free T4 1.6.
Levothyroxine dose increased from 88 to 100 mcg daily. Discussed with patient.
CAD
GERD/Blackburn's esophagus/GAVE
Primary biliary cirrhosis
Sj�gren's syndrome
Diverticulosis
Chronic normocytic anemia -hemoglobin down to 7.9 today. 8.9 on admission. Monitor closely on IV heparin.
Obesity due to excess calories
Full code
Anticipated Discharge: > 48 hours
Subjective/Interval History
-
Date of Service: June 18, 2025
Patient seen and examined, complaining of cough.
Objective Data
-
Labs:
Laboratory Results
06/18/25 06/18/25 06/18/25
02:13 05:50 08:10
WBC 7.2
Hgb 7.9 L
Hct 23.5 L
Plt Count 169 D
APTT 92.2 H 66.2 H Cancelled
Sodium 136
Potassium 4.5
Chloride 107
Carbon Dioxide 26
BUN 54 H
Creatinine 2.9 H
Glucose 93
Calcium 8.3 L
06/18/25
13:30
WBC
Hgb
Hct
Plt Count
APTT Pending
Sodium
Potassium
Chloride
Carbon Dioxide
BUN
Creatinine
Glucose
Calcium
Vital Signs:
Vital Signs
Temp Pulse Resp BP Pulse Ox
97.9 F 65 14 175/66 98
06/18/25 08:03 06/18/25 08:03 06/18/25 08:03 06/18/25 08:03 06/18/25 08:03
I&O
06/17/25 06/18/25 06/19/25
06:59 06:59 06:59
Intake Total 120 / 120 824.1 / 824.1
Output Total 650 / 650 1250 / 1250
Balance -530 / -530 -425.9 / -425.9
Review of Systems
-
History Source: Patient
All other systems: Reviewed and negative
--- NOTE | 2025-06-18 11:12 | W.PN.NEPH.PH ---
Today's Communication / Plan
-
increase lasix today
Assessment/Plan
-
Assessment
Living related renal transplant 2008
CKD 4 with subnephrotic range proteinuria baseline creatinine 2.2
Pulm edema, lower extreme edema
Hypertension
Hypothyroidism
Primary biliary cirrhosis
Sjogren's
MIRLANDE
Heart failure reduced ejection fraction 30% on February 28, 2025 echocardiogram
Plan
Follow BMP
Diuresis with IV Lasix, give 80mg this afternoon
Heparin drip
hydralazine for hypertension
Hold ARB still
bronchitis treatment
-
-
Date of Service: June 18, 2025
CC / HPI / ROS
-
Chief Complaint:
MIRLANDE
History of Present Illness:
MIRLANDE/Cr slightly better 2.9
on lasix IV for decompensated HF
BP high this am
still SOB
Review of Systems:
no CP
SOB
Labs
-
Labs:
WBC 7.2 10^3/uL (4.8-10.8) 06/18/25 05:50
RBC 2.65 10^6/uL (4.20-5.40) L 06/18/25 05:50
Hgb 7.9 g/dL (12.0-16.0) L 06/18/25 05:50
Hct 23.5 % (37.0-47.0) L 06/18/25 05:50
Plt Count 169 10^3/uL (130-400) D 06/18/25 05:50
Sodium 136 mmol/L (135-145) 06/18/25 05:50
Potassium 4.5 mmol/L (3.5-5.1) 06/18/25 05:50
Chloride 107 mmol/L (98-107) 06/18/25 05:50
Carbon Dioxide 26 mmol/L (22-30) 06/18/25 05:50
BUN 54 mg/dl (7-17) H 06/18/25 05:50
Creatinine 2.9 mg/dL (0.6-1.0) H 06/18/25 05:50
eGFR 16.48 06/18/25 05:50
Glucose 93 mg/dl (70-99) 06/18/25 05:50
Calcium 8.3 mg/dl (8.4-10.2) L 06/18/25 05:50
Phosphorus 3.5 mg/dl (2.5-4.5) 06/17/25 06:11
Mxc-K-Gspcntxxvkx Pept > 26029 pg/ml 06/16/25 19:20
Albumin 3.1 g/dl (3.5-5.0) L 06/16/25 19:20
Physical Exam
-
Vital Signs:
Vital Signs
Temp Pulse Resp BP Pulse Ox
97.9 F 65 14 175/66 98
06/18/25 08:03 06/18/25 08:03 06/18/25 08:03 06/18/25 08:03 06/18/25 08:03
Cardiovascular:: Regular rate and rhythm
Respiratory:: Bilateral: Coarse and Bilateral: Wheeze
Lung Excursion:: Normal
Abdomen:: Nontender and Soft
Bowel Sounds:: Normal
Extremity Edema:: None: Bilateral:
[2025-06-18 11:38] VITALS: BP 90/50
[2025-06-18] MEDS: MUCINEX 600 MG PO ×2 (11:48→19:31)
[2025-06-18] MEDS: DELTASONE 40 MG PO (11:48)
[2025-06-18] MEDS: TESSALON PERLES 200 MG PO ×2 (11:48→22:05)
--- NOTE | 2025-06-18 12:15 | W.PN.CD ---
Today's Communication / Plan
-
Agree with increased dose of diuretics
dry weight ~135 lbs
May need to hold coreg for low bp
Impression / Plan
-
I/P: 74F with CAD (severe disease not deemed intervenable with PCI due to history of GIB), ICM (LVEF 30-35%), Sjogren's, PKD renal transplant now with CKD, MARCELLO s/p right CEA with moderate disease on the left, and first-degree AV block presented to
the emergency department with a chief complaint of shortness of breath.
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
HFrEF (LVEF 30-35%) acute on chronic
Ischemic cardiomyopathy
- CXR shows significant pulm edema
- CT with small bilateral pleural effusions, proBNP >27,000 (creatinine 3.0), and an exam consistent with volume overload
- Agree with increased diuresis
- GDMT is currently limited due to renal function, continue carvedilol 25 mg twice daily
- Update echocardiogram
- Trend daily weight, I/O, and BMP with diuresis
- Heart failure education
- dry weight ~135 lbs
Abnormal troponin
- Peak troponin 6.390
- Chest pain free
Coronary artery disease
- S/p LAD angioplasty 2004 (no stenting due to active GIB)
- 2008 catheterization with MV CAD (80-90% mid LAD and moderate disease in the OM and PDA)
- Stress test in 2021 showed mild ischemia, limited benefit given poor candidate for DAPT and CKD with renal transplant
MIRLANDE on chronic kidney disease stage IV
- PKD status post living donor now with CKD
- Follows with nephrology
Carotid artery stenosis, s/p right CEA, left carotid with >70% stenosis
Hypertension, BP well above goal at last nephrology OV
Hypercholesterolemia with statin intolerance, LDL above goal, consider PCSK9 eye as an outpatient
GERD/Blackburn's esophagus/GAVE
Sjogren's
Subjective: Remains SOB
Physical Exam
Vital Signs/Labs
Vital Signs
Temp Pulse Resp BP Pulse Ox
97.5 F 65 14 90/50 97
06/18/25 11:38 06/18/25 11:38 06/18/25 11:38 06/18/25 11:38 06/18/25 11:38
06/17/25 06/18/25 06/19/25
06:59 06:59 06:59
Actual Weight 140 lb 6.4 oz 140 lb 3.2 oz
06/18/25 05:50
06/18/25 05:50
APTT Cancelled 06/18/25 08:10
Magnesium 1.6 mg/dl (1.6-2.3) 06/17/25 06:11
Triglycerides 122 mg/dl (10-149) 06/17/25 06:11
LDL Cholesterol, Calc 90 mg/dl 06/17/25 06:11
VLDL Cholesterol, Calc 24 mg/dl (0-30) 06/17/25 06:11
HDL Cholesterol 34 mg/dl 06/17/25 06:11
Free T4 1.60 ng/dl (0.78-2.19) 06/17/25 06:11
06/16/25
19:20
Cep-T-Cbszhyhiqbk Pept > 37850
LAB Results
06/16/25 06/17/25 06/17/25
19:20 01:10 06:11
Troponin I 6.360 H* 6.390 H* 6.140 H*
06/17/25
11:52
Troponin I 5.460 H*
Physical Exam
Constitutional: No acute distress
EENT: Anicteric
Cardiovascular: Rhythm & rate is regular
Respiratory: Respiratory effort normal and Crackles Present
GI: Soft
Neuro/Psych: AO x 3
Data Reviewed
-
Date of Service: June 18, 2025
EKG: Tracing Personally Visualized and interpreted (sr)
Echo: Report Reviewed by me
Labs: Labs Reviewed by me
[2025-06-18 14:05] LABS: APTT 125.5 Sec (23.4-35.0)
[2025-06-18 15:41] VITALS: BP 147/59
[2025-06-18] MEDS: LASIX 80 MG IV (17:01)
[2025-06-18 19:12] VITALS: BP 138/61
[2025-06-18] MEDS: NON-FORMULARY ITEM 1 UNIT PO (19:37)
[2025-06-18] MEDS: PROGRAF 0.5 MG PO (21:59)
[2025-06-18 23:38] VITALS: BP 121/50
[2025-06-19] VITALS (7 sets, daily range): BP systolic 103–136; BP diastolic 42–60; BMI 29.3
[2025-06-19] MEDS: TESSALON PERLES 200 MG PO ×2 (04:45→19:51)
[2025-06-19] MEDS: SYNTHROID 100 MCG PO (04:45)
[2025-06-19 07:11] LABS: Hematocrit 24.4 % (37.0-47.0); Hemoglobin 7.9 g/dL (12.0-16.0); Mean Corp Hgb Conc. 32.4 g/dL (33.0-37.0); Mean Corpuscular Volume 87.5 fL (81.0-99.0); Nucleated Red Blood Cells % 0 %; Platelet Count 199 10^3/uL (130-400); Red Cell Dist. Width 13.5 % (11.5-14.5)
[2025-06-19 07:47] LABS: Blood Urea Nitrogen 55 mg/dl (7-17); Calcium 8.8 mg/dl (8.4-10.2); Carbon Dioxide 26 mmol/L (22-30); Chloride 105 mmol/L (98-107); Estimated Creatinine Clearance 11 ml/min; Glucose 103 mg/dl (70-99); Potassium 4.7 mmol/L (3.5-5.1); Sodium 136 mmol/L (135-145); eGFR 13.61
[2025-06-19] MEDS: COREG 25 MG PO ×2 (08:29→19:47)
[2025-06-19] MEDS: APRESOLINE 25 MG PO ×2 (08:29→19:47)
[2025-06-19] MEDS: DELTASONE 40 MG PO (08:29)
[2025-06-19] MEDS: ASPIR LOW (ENTERIC COATED) 81 MG PO (08:29)
[2025-06-19] MEDS: LASIX IV (08:30)
[2025-06-19] MEDS: MUCINEX 600 MG PO ×2 (08:30→19:47)
[2025-06-19] MEDS: MYFORTIC DELAYED REL. 360 MG PO ×2 (08:30→19:47)
[2025-06-19] MEDS: MAGNESIUM OXIDE 400 MG PO (08:30)
[2025-06-19] MEDS: URSO 500 MG PO ×2 (08:37→19:47)
[2025-06-19] MEDS: SODIUM BICARBONATE 650 MG PO ×2 (08:37→19:47)
[2025-06-19] MEDS: RESTASIS 0.05% OPHTHALMIC EMULSION 1 DROPS BOTH EYES ×2 (08:37→19:48)
[2025-06-19] MEDS: SINGULAIR 10 MG PO (08:37)
--- NOTE | 2025-06-19 10:24 | W.PN.HOSP.TC ---
Today's Communication/Plan
-
Hold diuretics
Labs in the morning
Assessment / Plan
Assessment / Plan
Gen-AAOx3, NAD
HEENT-NC, AT, anicteric, clear oral mm
Neck-supple
CV-reg, no M, +S1/S2
Lungs-clear bilaterally
Abd-soft, NT, ND
Ext-no edema
Musculoskeletal-no cyanosis, clubbing
Skin-warm and dry
Neuro-grossly non-focal
Psych-calm, cooperative
Acute on chronic heart failure with reduced EF -clinically improved. Echocardiogram shows LVEF 30 to 35%, mid to apical septum and apex aneurysmal. Hypokinesis of the mid to apical anterior, lateral, inferior mixon. Mild to moderate TR. Severely
elevated PASP, 91 mmHg.
Does not appear to be on diuretics at home.
Repeat two-view chest x-ray done 06/18 shows severe acute pulmonary edema. Small bilateral pleural effusions. Moderate cardiomegaly.
Received higher dose of Lasix last evening, 80 mg. Lasix currently on hold due to rising creatinine.
Acute bronchitis -symptoms improved. Likely viral syndrome. Continue prednisone, as needed nebs, Mucinex, Tessalon Perles.
No evidence of pneumonia on chest x-ray from today. Not hypoxic, not requiring oxygen.
MIRLANDE on CKD 4 -baseline creatinine 2.2, creatinine rising, 3.4 today. Etiology of MIRLANDE possibly due to cardiorenal syndrome from heart failure.
Hold losartan.
Spoke with nephrology, appears to have progressive kidney disease of her transplant. No evidence of rejection on biopsy previously.
Troponin elevation -without chest pain. Cardiology feels that she may have type II IA due to demand in the setting of heart failure exacerbation.
Troponin trending down. Received 48 hrs. of IV heparin.
History of living related donor renal transplant 2008 -continue immunosuppression.
Polycystic kidney disease
Essential hypertension -blood pressures somewhat labile. Continue current meds.
Hypothyroidism -continue levothyroxine.
TSH 6.05, free T4 1.6.
Levothyroxine dose increased from 88 to 100 mcg daily. Discussed with patient.
CAD
GERD/Blackburn's esophagus/GAVE
Primary biliary cirrhosis
Sj�gren's syndrome
Diverticulosis
Chronic normocytic anemia -hemoglobin stable at 7.9 today. 8.9 on admission. No evidence of bleeding. Monitor for now.
Obesity due to excess calories
Full code
Anticipated Discharge: 24 - 48 hours
Subjective/Interval History
-
Date of Service: June 19, 2025
Patient seen and examined, feeling better, shortness of breath resolved. No complaints.
Objective Data
-
Labs:
Laboratory Results
06/19/25
06:50
WBC 10.2
Hgb 7.9 L
Hct 24.4 L
Plt Count 199
Sodium 136
Potassium 4.7
Chloride 105
Carbon Dioxide 26
BUN 55 H
Creatinine 3.4 H
Glucose 103 H
Calcium 8.8
Vital Signs:
Vital Signs
Temp Pulse Resp BP Pulse Ox
97.8 F 65 18 135/49 99
06/19/25 07:00 06/19/25 07:00 06/19/25 07:00 06/19/25 07:00 06/19/25 07:00
I&O
06/18/25 06/19/25 06/20/25
06:59 06:59 06:59
Intake Total 824.1 / 824.1 480 / 480
Output Total 1250 / 1250 250 / 250 550 / 550
Balance -425.9 / -425.9 -250 / -250 -70 / -70
Review of Systems
-
History Source: Patient
All other systems: Reviewed and negative
--- NOTE | 2025-06-19 10:25 | W.PN.NEPH.PH ---
Today's Communication / Plan
-
CXR
Assessment/Plan
-
Assessment
Living related renal transplant 2008
CKD 4 with subnephrotic range proteinuria baseline creatinine 2.2
Pulm edema, lower extreme edema
Hypertension
Hypothyroidism
Primary biliary cirrhosis
Sjogren's
MIRLANDE
Heart failure reduced ejection fraction 30% on February 28, 2025 echocardiogram
Plan
Follow BMP
hold lasix
hydralazine for hypertension
Hold ARB still
bronchitis treatment
repeat CXR given apparent improvement in CHF, may explain shift in Cr
-
-
Date of Service: June 19, 2025
CC / HPI / ROS
-
Chief Complaint:
MIRLANDE
History of Present Illness:
MIRLANDE/Cr worse to 3.4
on lasix IV for decompensated HF
no change in UOP with higher dose lasix last night
weights down
BP stable
no SOB
Review of Systems:
no CP
no SOB
no supplemental O2
Labs
-
Labs:
WBC 10.2 10^3/uL (4.8-10.8) 06/19/25 06:50
RBC 2.79 10^6/uL (4.20-5.40) L 06/19/25 06:50
Hgb 7.9 g/dL (12.0-16.0) L 06/19/25 06:50
Hct 24.4 % (37.0-47.0) L 06/19/25 06:50
Plt Count 199 10^3/uL (130-400) 06/19/25 06:50
Sodium 136 mmol/L (135-145) 06/19/25 06:50
Potassium 4.7 mmol/L (3.5-5.1) 06/19/25 06:50
Chloride 105 mmol/L (98-107) 06/19/25 06:50
Carbon Dioxide 26 mmol/L (22-30) 06/19/25 06:50
BUN 55 mg/dl (7-17) H 06/19/25 06:50
Creatinine 3.4 mg/dL (0.6-1.0) H 06/19/25 06:50
eGFR 13.61 06/19/25 06:50
Glucose 103 mg/dl (70-99) H 06/19/25 06:50
Calcium 8.8 mg/dl (8.4-10.2) 06/19/25 06:50
Phosphorus 3.5 mg/dl (2.5-4.5) 06/17/25 06:11
Deh-C-Geumnyewiet Pept > 59260 pg/ml 06/16/25 19:20
Albumin 3.1 g/dl (3.5-5.0) L 06/16/25 19:20
Physical Exam
-
Vital Signs:
Vital Signs
Temp Pulse Resp BP Pulse Ox
97.8 F 65 18 135/49 99
06/19/25 07:00 06/19/25 07:00 06/19/25 07:00 06/19/25 07:00 06/19/25 07:00
Cardiovascular:: Regular rate and rhythm
Respiratory:: Bilateral: CTA
Lung Excursion:: Normal
Abdomen:: Nontender and Soft
Bowel Sounds:: Normal
Extremity Edema:: None: Bilateral:
--- NOTE | 2025-06-19 13:48 | W.PN.CD ---
Today's Communication / Plan
-
Holding diuresis in setting of worsening creatinine nephro following
Impression / Plan
-
I/P: 74F with CAD (severe disease not deemed intervenable with PCI due to history of GIB), ICM (LVEF 30-35%), Sjogren's, PKD renal transplant now with CKD, MARCELLO s/p right CEA with moderate disease on the left, and first-degree AV block presented to
the emergency department with a chief complaint of shortness of breath.
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
HFrEF (LVEF 30-35%) acute on chronic
Ischemic cardiomyopathy
- CXR shows significant pulm edema
- CT with small bilateral pleural effusions, proBNP >27,000 (creatinine 3.0), and an exam consistent with volume overload
- Agree with increased diuresis
- GDMT is currently limited due to renal function, continue carvedilol 25 mg twice daily
- Update echocardiogram
- Trend daily weight, I/O, and BMP with diuresis
- Heart failure education
- dry weight ~135 lbs
Abnormal troponin
- Peak troponin 6.390
- Chest pain free
Coronary artery disease
- S/p LAD angioplasty 2004 (no stenting due to active GIB)
- 2008 catheterization with MV CAD (80-90% mid LAD and moderate disease in the OM and PDA)
- Stress test in 2021 showed mild ischemia, limited benefit given poor candidate for DAPT and CKD with renal transplant
MIRLANDE on chronic kidney disease stage IV
- PKD status post living donor now with CKD
- Follows with nephrology
-Creatinine increased after increased dose of diuretics
Carotid artery stenosis, s/p right CEA, left carotid with >70% stenosis
Hypertension, BP well above goal at last nephrology OV
Hypercholesterolemia with statin intolerance, LDL above goal, consider PCSK9 eye as an outpatient
GERD/Blackburn's esophagus/GAVE
Sjogren's
Subjective: Feels much improved today
Physical Exam
Vital Signs/Labs
Vital Signs
Temp Pulse Resp BP Pulse Ox
97.4 F 64 16 103/59 98
06/19/25 11:00 06/19/25 11:00 06/19/25 11:00 06/19/25 11:00 06/19/25 11:00
06/18/25 06/19/25 06/20/25
06:59 06:59 06:59
Actual Weight 140 lb 3.2 oz 140 lb
06/19/25 06:50
06/19/25 06:50
APTT Cancelled 06/18/25 20:30
Magnesium 1.6 mg/dl (1.6-2.3) 06/17/25 06:11
Triglycerides 122 mg/dl (10-149) 06/17/25 06:11
LDL Cholesterol, Calc 90 mg/dl 06/17/25 06:11
VLDL Cholesterol, Calc 24 mg/dl (0-30) 06/17/25 06:11
HDL Cholesterol 34 mg/dl 06/17/25 06:11
Free T4 1.60 ng/dl (0.78-2.19) 06/17/25 06:11
06/16/25
19:20
Owo-O-Jxrvxgrqfqu Pept > 10489
LAB Results
06/16/25 06/17/25 06/17/25
19:20 01:10 06:11
Troponin I 6.360 H* 6.390 H* 6.140 H*
06/17/25
11:52
Troponin I 5.460 H*
Physical Exam
Constitutional: No acute distress and Comfortable
EENT: Anicteric
Cardiovascular: Rhythm & rate is regular
Respiratory: Respiratory effort normal and Lungs clear to auscul.
GI: Soft
Neuro/Psych: AO x 3
Data Reviewed
-
Date of Service: June 19, 2025
Medical Decision Making: Reviewed Test Results
EKG: Tracing Personally Visualized and interpreted (Sinus)
Echo: Report Reviewed by me
Labs: Labs Reviewed by me
[2025-06-19 14:59] LABS: Urine Character Slightly Cloudy (Clear)
[2025-06-19 16:05] LABS: Urine Squamous Cell 21-25 /LPF (Few); Urine Urothelial Cell 0-2 /LPF (FEW)
[2025-06-19 16:06] LABS: Urine Red Blood Cell 16-20 /HPF (0-2); Urine White Cell 60-70 /HPF (0-5)
[2025-06-19] MEDS: PROGRAF 0.5 MG PO (21:12)
[2025-06-20] MEDS: MELATONIN 5 MG PO (00:40)
[2025-06-20 03:24] VITALS: BP 106/50
[2025-06-20] MEDS: SYNTHROID 100 MCG PO (05:31)
[2025-06-20 05:32] VITALS: BMI 30.3
[2025-06-20 07:16] VITALS: BP 126/55
[2025-06-20 08:23] LABS: Hematocrit 24.8 % (37.0-47.0); Hemoglobin 8.2 g/dL (12.0-16.0); Mean Corp Hgb Conc. 33.1 g/dL (33.0-37.0); Mean Corpuscular Volume 87.0 fL (81.0-99.0); Nucleated Red Blood Cells % 0 %; Platelet Count 210 10^3/uL (130-400); Red Cell Dist. Width 13.3 % (11.5-14.5)
--- NOTE | 2025-06-20 08:37 | W.PN.HOSP.TC ---
Today's Communication/Plan
-
See plan.
Assessment / Plan
Assessment / Plan
Gen-AAOx3, NAD
HEENT-NC, AT, anicteric, clear oral mm
Neck-supple
CV-reg, no M, +S1/S2
Lungs-clear bilaterally, no wheezes
Abd-soft, NT, ND
Ext-bilateral lower extremity edema
Musculoskeletal-no cyanosis, clubbing
Skin-warm and dry, no rash
Neuro-grossly non-focal
Psych-calm, cooperative
A/P:
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 Hypokinesis of the mid to apical anterior, lateral, inferior mxion. Mild to moderate TR. Severely elevated PASP, 91
mmHg.
Does not appear to be on diuretics at home.
Repeat two-view chest x-ray done 06/18 shows severe acute pulmonary edema. Small bilateral pleural effusions. Moderate cardiomegaly.
Lasix currently on hold due to rising creatinine.
Cardiology following-discussed with cardiology via [facility] text
Nephrology following as well and rechecking later this afternoon and tomorrow morning and if creatinine continues to rise, consider right heart cath-discussed with cardiology via [facility] text.
Tried to reach and unable to do so.
MIRLANDE on CKD 4 -baseline creatinine 2.2, creatinine rising, 3.5 today. Etiology of MIRLANDE possibly due to cardiorenal syndrome from heart failure. Nephrology following as well and rechecking later this afternoon and tomorrow morning and if creatinine
continues to rise, consider right heart cath-discussed with cardiology via [facility].
Hold losartan.
Dr Leavitt spoke with nephrology, appears to have progressive kidney disease of her transplant. No evidence of rejection on biopsy previously.
Hyponatremia-sodium worsening today down to 128. Probably related to hypervolemia and/or MIRLANDE.
Acute bronchitis -symptoms improved. Likely viral syndrome. Continue prednisone for total 5 days, as needed nebs, Mucinex, Tessalon Perles.
No evidence of pneumonia on chest x-ray. Not hypoxic, not requiring oxygen.
Troponin elevation -without chest pain. Cardiology feels that she may have type II MA due to demand in the setting of heart failure exacerbation.
Troponin trending down. Received 48 hrs. of IV heparin.
History of living related donor renal transplant 2008 -continue immunosuppression. Tacrolimus level pending.
Polycystic kidney disease-continue to monitor kidney function
Essential hypertension -blood pressures somewhat labile but stable. Continue current meds.
Hypothyroidism -continue levothyroxine.
TSH 6.05, free T4 1.6.
Levothyroxine dose increased from [address] Leavitt discussed with patient.
CAD-continue current anti-ischemic regimen
GERD/Blackburn's esophagus/GAVE-stable
Primary biliary cirrhosis-stable
Sj�gren's syndrome-stable
Diverticulosis-stable
Chronic normocytic anemia -hemoglobin stable at 8.2 today. 8.9 on admission. No evidence of bleeding. Monitor for now.
Obesity due to excess calories
Full code
Total time spent on today's encounter was 52 minutes which included time spent in counseling the patient/family regarding diagnosis and treatment plan as listed above, goals of care, and symptom management. Case was discussed with nursing staff,
specialists, and care coordinators/case management. All labs and imaging personally reviewed by me. Remainder the time spent in detailed review of previous records, lab data, imaging, and other medical provider documentation.
Anticipated Discharge: > 48 hours
Subjective/Interval History
-
Date of Service: June 20, 2025
Patient denies any worsening shortness of breath. Her weight is going up. Denies any chest pain.
Objective Data
-
Labs:
Laboratory Results
06/20/25
07:57
WBC 12.2 H
Hgb 8.2 L
Hct 24.8 L
Plt Count 210
Sodium Pending
Potassium Pending
Chloride Pending
Carbon Dioxide Pending
BUN Pending
Creatinine Pending
Glucose Pending
Calcium Pending
Vital Signs:
Vital Signs
Temp Pulse Resp BP Pulse Ox
97.7 F 58 18 126/55 98
06/20/25 07:16 06/20/25 07:16 06/20/25 07:16 06/20/25 07:16 06/20/25 07:16
I&O
06/19/25 06/20/25 06/21/25
06:59 06:59 06:59
Intake Total 2220 / 2220
Output Total 250 / 250 550 / 550
Balance -250 / -250 1670 / 1670
[2025-06-20] MEDS: ASPIR LOW (ENTERIC COATED) 81 MG PO (09:00)
[2025-06-20] MEDS: SODIUM BICARBONATE 650 MG PO ×2 (09:00→20:19)
[2025-06-20] MEDS: URSO 500 MG PO ×2 (09:00→20:18)
[2025-06-20] MEDS: MUCINEX 600 MG PO ×2 (09:00→20:19)
[2025-06-20] MEDS: RESTASIS 0.05% OPHTHALMIC EMULSION 1 DROPS BOTH EYES ×2 (09:01→20:20)
[2025-06-20] MEDS: PROGRAF 0.5 MG PO ×2 (09:01→22:43)
[2025-06-20] MEDS: SINGULAIR 10 MG PO (09:01)
[2025-06-20] MEDS: MYFORTIC DELAYED REL. 360 MG PO ×2 (09:05→20:19)
[2025-06-20] MEDS: APRESOLINE 25 MG PO ×2 (09:05→20:19)
[2025-06-20] MEDS: MAGNESIUM OXIDE 400 MG PO (09:06)
[2025-06-20] MEDS: COREG 25 MG PO ×2 (09:06→20:19)
[2025-06-20] MEDS: DELTASONE 40 MG PO (09:06)
[2025-06-20 09:07] LABS: Blood Urea Nitrogen 63 mg/dl (7-17); Calcium 8.8 mg/dl (8.4-10.2); Carbon Dioxide 25 mmol/L (22-30); Chloride 100 mmol/L (98-107); Estimated Creatinine Clearance 11 ml/min; Glucose 94 mg/dl (70-99); Potassium 4.7 mmol/L (3.5-5.1); Sodium 128 mmol/L (135-145); eGFR 13.15
[2025-06-20] MEDS: VITAMIN D3 (cholecalciferol) 125 MCG PO (09:08)
[2025-06-20] MEDS: NON-FORMULARY ITEM 1 UNIT PO ×2 (09:10→22:45)
[2025-06-20] MEDS: TESSALON PERLES 200 MG PO (09:24)
--- NOTE | 2025-06-20 09:54 | W.PN.CD ---
Addendum entered and electronically signed by Keshav Smith MD 06/20/25 13:06:
I reviewed and agree with the note by BEULAH Allen and it accurately reflects our care.
I saw and evaluated the patient, and I provided the substantive portion of the medical decision making. Assessment and plan is below:
74 year old woman with HFrEF/ICM, CKD, admitted with CHF exacerbation. Weight increased today in setting of holding diuretic held and more fluid intake. Orthopnea / shortness of breath improved. Cr appears to be trending to peak. Echo demonstrated
stable reduced EF 30-35% but increased pulmonary hypertension with PASP 90. Given MIRLANDE on CKD, not currently on GDMT other than coreg 25 BID.
# Acute on chronic systolic heart failure
# ICM
# MIRLANDE on CKD
- cont. coreg
- fluid restriction today, no further diuretic
- trend Cr, if not improved tomorrow will perform RHC to clarify volume status, if improving, will start oral diuretic to maintain mild diuresis / euvolemia
- appreciate renal recs
- other plans per [employer] note
Original Note:
Today's Communication / Plan
-
Creatinine improved with holding of diuretic. Weight is now up and sodium is down.
Continue GDMT which is limited by her kidney disease.
Impression / Plan
-
I/P: 74F with CAD (severe disease not deemed intervenable with PCI due to history of GIB), ICM (LVEF 30-35%), Sjogren's, PKD renal transplant now with CKD, MARCELLO s/p right CEA with moderate disease on the left, and first-degree AV block presented to
the emergency department with a chief complaint of shortness of breath.
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
HFrEF (LVEF 30-35%) acute on chronic
Ischemic cardiomyopathy
- CXR showed mild improvement in interstitial and alveolar cardiogenic pulmonary edema, orthopnea improving
- She is up 5 pounds on the standing scale compared to yesterday
- Echocardiogram: LVEF unchanged. PASP now 91 mmHg.
- GDMT as tolerated:
-JESUS/ARB/ARNI: ARB on hold with rising creatinine
-SGLT2 inhibitor: None, would not initiate without nephrology recommendation
-Aldosterone agonist: None due to renal
-Beta bobbi: Carvedilol 25 mg twice daily
-Isosorbide/Hydralazine:�Hydralazine 25 mg daily
-ICD: Reevaluate LVEF after 30 days of maximally tolerated GDMT
- Trend daily weight, I/O, and BMP with diuresis
- Heart failure education
- Dry weight ~135 lbs
Abnormal troponin, in the setting of type II CO in the setting of heart failure exacerbation
- Peak troponin 6.390, trended down - she completed 48 hours of intravenous heparin
- Chest pain free
Coronary artery disease
- S/p LAD angioplasty 2004 (no stenting due to active GIB)
- 2008 catheterization with MV CAD (80-90% mid LAD and moderate disease in the OM and PDA)
- Stress test in 2021 showed mild ischemia, limited benefit given poor candidate for DAPT and CKD with renal transplant
MIRLANED on chronic kidney disease stage IV
- PKD status post living donor tranplant (2008) now with CKD
- Follows with nephrology
- Creatinine now up to 3.5
Hyponatremia
- Asymptomatic, per nephrology with underlying CKD
Tricuspid regurgitation, mild to moderate, PASP 91 mmHg
Carotid artery stenosis, s/p right CEA, left carotid with >70% stenosis
Hypertension, BP well above goal at last nephrology OV
Hypercholesterolemia with statin intolerance, LDL above goal, consider PCSK9i as an outpatient
GERD/Blackburn's esophagus/GAVE
Sjogren's
SUBJECTIVE:
Denies chest pain and shortness of breath. Orthopnea improved from admission.
Physical Exam
Vital Signs/Labs
Vital Signs
Temp Pulse Resp BP Pulse Ox
97.7 F 58 18 126/55 98
06/20/25 07:16 06/20/25 09:05 06/20/25 07:16 06/20/25 09:05 06/20/25 07:16
06/19/25 06/20/25 06/21/25
06:59 06:59 06:59
Actual Weight 140 lb 145 lb
06/20/25 07:57
06/20/25 07:57
APTT Cancelled 06/18/25 20:30
Magnesium 1.6 mg/dl (1.6-2.3) 06/17/25 06:11
Triglycerides 122 mg/dl (10-149) 06/17/25 06:11
LDL Cholesterol, Calc 90 mg/dl 06/17/25 06:11
VLDL Cholesterol, Calc 24 mg/dl (0-30) 06/17/25 06:11
HDL Cholesterol 34 mg/dl 06/17/25 06:11
Free T4 1.60 ng/dl (0.78-2.19) 06/17/25 06:11
06/16/25
19:20
Uhh-N-Znarfmspkzi Pept > 93156
LAB Results
06/17/25
11:52
Troponin I 5.460 H*
Physical Exam
Constitutional: No acute distress and Comfortable
EENT: Anicteric and Moist mucous membranes
Cardiovascular: Rhythm & rate is regular, Pedal edema is absent and S1S2 is normal
Respiratory: Respiratory effort normal and Crackles Present (Left base)
GI: Soft, Distention absent, Flat, Non tender and Normal bowel sounds
Neuro/Psych: Alert and Oriented
Other: Skin (Warm and dry)
Data Reviewed
-
Date of Service: June 20, 2025
[2025-06-20 11:55] VITALS: BP 104/36
--- NOTE | 2025-06-20 12:12 | CM ---
Patient seen at bedside in [address] [place] [address]. Patient stated that she has no needs for discharge at this time. CM will continue to follow for discharge planning needs.
Plan; home with no needs.
--- NOTE | 2025-06-20 12:20 | W.PN.NEPH.PH ---
Today's Communication / Plan
-
recheck labs today
see plan
Assessment/Plan
-
Assessment
Living related renal transplant 2008
CKD 4 with subnephrotic range proteinuria baseline creatinine 2.2
Pulm edema, lower extreme edema
Hypertension
Hypothyroidism
Primary biliary cirrhosis
Sjogren's
MIRLANDE
Heart failure reduced ejection fraction 30% on February 28, 2025 echocardiogram
Plan
cr up at 3.5, possible cardiorenal and reaching its peak
UA-UTI?sample, fena 0.5%, CT abd no hydro, PVR was neg, cotn IS-tac and MMF, await tac level
cont to hold lasix, if cr rising in next lab would consider RHC
hard to gaze vol status, Wt is up and CXR still with CHF
clinically she is on RA with out sob, echo noted on 06/17 EF 30-35%, severely elevated PASP 91
lyakhbbfjsll-cwu-cvjlfkk labs
Bp stable on meds , ARB on hold
met acidosis on chr po bicarb therapy
anemia-fe sat only 17%, start IV fe course
Follow BMP
cont bronchitis treatment on prednisone
-
-
Date of Service: June 20, 2025
CC / HPI / ROS
-
Chief Complaint:
MIRLANDE
History of Present Illness:
MIRLANDE/Cr worse to 3.5
off lasix since 06/19 for decompensated HF
weights s up
BP stable
hb low at 8.2
Review of Systems:
no CP
no SOB at rest
no supplemental O2
subjectively lower UOP
Labs
-
Labs:
WBC 12.2 10^3/uL (4.8-10.8) H 06/20/25 07:57
RBC 2.85 10^6/uL (4.20-5.40) L 06/20/25 07:57
Hgb 8.2 g/dL (12.0-16.0) L 06/20/25 07:57
Hct 24.8 % (37.0-47.0) L 06/20/25 07:57
Plt Count 210 10^3/uL (130-400) 06/20/25 07:57
Sodium 128 mmol/L (135-145) L D 06/20/25 07:57
Potassium 4.7 mmol/L (3.5-5.1) 06/20/25 07:57
Chloride 100 mmol/L (98-107) 06/20/25 07:57
Carbon Dioxide 25 mmol/L (22-30) 06/20/25 07:57
BUN 63 mg/dl (7-17) H 06/20/25 07:57
Creatinine 3.5 mg/dL (0.6-1.0) H 06/20/25 07:57
eGFR 13.15 06/20/25 07:57
Glucose 94 mg/dl (70-99) 06/20/25 07:57
Calcium 8.8 mg/dl (8.4-10.2) 06/20/25 07:57
Phosphorus 3.5 mg/dl (2.5-4.5) 06/17/25 06:11
Ltw-O-Ssblruhmofg Pept > 93022 pg/ml 06/16/25 19:20
Albumin 3.1 g/dl (3.5-5.0) L 06/16/25 19:20
Physical Exam
-
Vital Signs:
Vital Signs
Temp Pulse Resp BP Pulse Ox
97.4 F 57 18 104/36 99
06/20/25 11:55 06/20/25 11:55 06/20/25 11:55 06/20/25 11:55 06/20/25 11:55
Cardiovascular:: Regular rate and rhythm
Respiratory:: Bilateral: CTA (decreased BS)
Lung Excursion:: Normal
Abdomen:: Nontender and Soft
Extremity Edema:: None: Bilateral:
Medrano Catheter: No
[2025-06-20 13:59] LABS: Blood Urea Nitrogen 65 mg/dl (7-17); Calcium 8.7 mg/dl (8.4-10.2); Carbon Dioxide 23 mmol/L (22-30); Chloride 98 mmol/L (98-107); Estimated Creatinine Clearance 11 ml/min; Glucose 136 mg/dl (70-99); Potassium 4.3 mmol/L (3.5-5.1); Sodium 128 mmol/L (135-145); eGFR 13.15
[2025-06-20] MEDS: FERRLECIT 110 MG IV (14:06)
[2025-06-20 15:45] VITALS: BP 123/50
[2025-06-20 19:38] VITALS: BP 154/66
[2025-06-20 23:35] VITALS: BP 131/53
[2025-06-21 03:08] VITALS: BP 120/51
[2025-06-21] MEDS: SYNTHROID 100 MCG PO (05:05)
[2025-06-21 05:58] VITALS: BMI 30.4
[2025-06-21 06:55] LABS: Hematocrit 24.0 % (37.0-47.0); Hemoglobin 7.9 g/dL (12.0-16.0)
[2025-06-21 07:13] LABS: Blood Urea Nitrogen 74 mg/dl (7-17); Calcium 8.7 mg/dl (8.4-10.2); Carbon Dioxide 25 mmol/L (22-30); Chloride 101 mmol/L (98-107); Estimated Creatinine Clearance 10 ml/min; Glucose 100 mg/dl (70-99); Potassium 5.0 mmol/L (3.5-5.1); Sodium 130 mmol/L (135-145); eGFR 11.91
[2025-06-21 07:26] VITALS: BP 127/46
[2025-06-21] MEDS: NON-FORMULARY ITEM 1 UNIT PO (08:37)
[2025-06-21] MEDS: APRESOLINE 25 MG PO ×2 (08:37→19:27)
[2025-06-21] MEDS: COREG 25 MG PO ×2 (08:38→21:42)
[2025-06-21] MEDS: ASPIR LOW (ENTERIC COATED) 81 MG PO (08:38)
[2025-06-21] MEDS: MYFORTIC DELAYED REL. 360 MG PO ×2 (08:39→19:27)
[2025-06-21] MEDS: RESTASIS 0.05% OPHTHALMIC EMULSION 1 DROPS BOTH EYES ×2 (08:39→19:28)
--- NOTE | 2025-06-21 11:25 | ITS.CL.PN ---
[employer] - Procedure Note
Procedure
Procedure Note:
CARDIAC CATHETERIZATION REPORT
Date of Procedure: 06/21/2025
Referring: Dr. Bebo Groves MD
Indication: Heart failure
PROCEDURE: right heart catheterization
ACCESS: 5F right antecubital vein (closure: manual hemostasis)
CATHETERS: 5F [place]
MODERATE SEDATION: 20 minutes of moderate sedation was utilized. An independent medical assistant supervisor was present to assist with and help manage the patient's level of consciousness and physiologic status.
HEMODYNAMIC DATA
SBP 114/55 (mean 79) mmHg
RA 13 mmHg
RV 50/10 (EDP 18) mmHg
PA 52/25 (mean 35) mmHg
PCWP 30 with V waves to 48 mmHg
SaO2 96.0%
SvO2 69.8%
Hb 8.3 g/dL
Weight 66.0 kg
CO/CI 6.71/4.23 L/min/m2
SVR 787 dsc*-5
PVR 0.8 Wood units
CONCLUSION: elevated biventricular filling pressures, moderate postcapillary pulmonary hypertension, and high-normal cardiac output with low SVR.
RECOMMENDATION: resume diuresis
Signed: Keshav Smith MD, PhD
[2025-06-21 11:32] VITALS: BP 108/46
--- NOTE | 2025-06-21 11:53 | W.PN.HOSP.TC ---
Today's Communication/Plan
-
Monitor vital signs see plan
Monitor renal function closely
Possible right heart cath today
Assessment / Plan
Assessment / Plan
Gen-AAOx3, NAD
HEENT-NC, AT, anicteric, clear oral mm
Neck-supple
CV-reg, no M, +S1/S2
Lungs-clear bilaterally, no wheezes
Abd-soft, NT, ND
Ext-bilateral lower extremity edema
Musculoskeletal-no cyanosis
Skin-warm and dry, no rash
Neuro-grossly non-focal
Psych-calm, cooperative
A/P:
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 Hypokinesis of the mid to apical anterior, lateral, inferior mixon. Mild to moderate TR. Severely elevated PASP, 91
mmHg.
Does not appear to be on diuretics at home.
Repeat two-view chest x-ray done 06/18 shows severe acute pulmonary edema. Small bilateral pleural effusions. Moderate cardiomegaly.
Lasix currently on hold due to rising creatinine.
Cardiology following-plan for possible right heart cath 06/21
Nephrology following as well
MIRLANDE on CKD 4 -baseline creatinine 2.2, creatinine rising, 3.8 today. Etiology of MIRLANDE possibly due to cardiorenal syndrome from heart failure.
Nephrology and cardiology following
Hold losartan.
Dr Leavitt spoke with nephrology, appears to have progressive kidney disease of her transplant. No evidence of rejection on biopsy previously.
Hyponatremia-monitor sodium. Probably related to hypervolemia and/or MIRLANDE.
Acute bronchitis -symptoms improved. Likely viral syndrome. Continue prednisone for total 5 days, as needed nebs, Mucinex, Tessalon Perles.
No evidence of pneumonia on chest x-ray. Not hypoxic, not requiring oxygen.
Troponin elevation -without chest pain. Cardiology feels that she may have type II [place] due to demand in the setting of heart failure exacerbation.
Troponin trending down. Received 48 hrs. of IV heparin.
History of living related donor renal transplant 2008 -continue immunosuppression. Tacrolimus level pending.
Polycystic kidney disease-continue to monitor kidney function
Essential hypertension -blood pressures somewhat labile but stable. Continue current meds.
Hypothyroidism -continue levothyroxine.
TSH 6.05, free T4 1.6.
Levothyroxine dose increased from [address] Leavitt discussed with patient.
CAD-continue current anti-ischemic regimen
GERD/Blackburn's esophagus/GAVE-stable
Primary biliary cirrhosis-stable
Sj�gren's syndrome-stable
Diverticulosis-stable
Chronic normocytic anemia -hemoglobin stable at 7.9 today. 8.9 on admission. No evidence of bleeding. Monitor for now.
on IV iron
Obesity due to excess calories
Full code
Total time spent on today's encounter was 53 minutes which included time spent in counseling the patient/family regarding diagnosis and treatment plan as listed above, goals of care, and symptom management. Case was discussed with nursing staff,
specialists, and care coordinators/case management. All labs and imaging personally reviewed by me. Remainder the time spent in detailed review of previous records, lab data, imaging, and other medical provider documentation.
Anticipated Discharge: > 48 hours
Subjective/Interval History
-
Date of Service: June 21, 2025
Denies pain
Objective Data
-
Labs:
Laboratory Results
06/21/25
06:01
Hgb 7.9 L
Hct 24.0 L
Sodium 130 L
Potassium 5.0
Chloride 101
Carbon Dioxide 25
BUN 74 H
Creatinine 3.8 H
Glucose 100 H
Calcium 8.7
Vital Signs:
Vital Signs
Temp Pulse Resp BP Pulse Ox
97.4 F 53 20 108/46 97
06/21/25 07:26 06/21/25 11:32 06/21/25 11:32 06/21/25 11:32 06/21/25 11:32
I&O
06/20/25 06/21/25 06/22/25
06:59 06:59 06:59
Intake Total 2220 / 2220 440 / 440
Output Total 550 / 550 400 / 400
Balance 1670 / 1670 40 / 40
[2025-06-21] MEDS: LASIX 40 MG IV ×2 (12:24→17:52)
[2025-06-21] MEDS: FERRLECIT 110 MG IV (13:42)
[2025-06-21] MEDS: MUCINEX 600 MG PO ×2 (13:43→19:27)
[2025-06-21] MEDS: SODIUM BICARBONATE 650 MG PO ×2 (13:43→19:28)
[2025-06-21] MEDS: MAGNESIUM OXIDE 400 MG PO (13:43)
[2025-06-21] MEDS: SINGULAIR 10 MG PO (13:43)
[2025-06-21] MEDS: DELTASONE 40 MG PO (13:43)
[2025-06-21] MEDS: URSO 500 MG PO ×2 (13:43→19:27)
--- NOTE | 2025-06-21 14:40 | W.PN.NEPH.PH ---
Addendum entered and electronically signed by Keke Baez MD 06/21/25 14:47:
hypervolemic hyponatremia expect to see improvement with diuresis, FR
Original Note:
Today's Communication / Plan
-
resume diretics
Assessment/Plan
-
Assessment
Living related renal transplant 2008
CKD 4 with subnephrotic range proteinuria baseline creatinine 2.2
Pulm edema, lower extreme edema
Hypertension
Hypothyroidism
Primary biliary cirrhosis
Sjogren's
MIRLANDE
Heart failure reduced ejection fraction 30% on February 28, 2025 echocardiogram
Plan
cr up at 3.8, possible cardiorenal
UA-UTI?sample, fena 0.5%, CT abd no hydro, PVR was neg, cotn IS-tac and MMF,Tac level initially low but repeat in the goal 5.9
THC today noted PCWP 30, resume diuretics
hopefully she can avoid dialysis
Bp stable on meds , ARB on hold
met acidosis on chr po bicarb therapy
anemia-fe sat only 17%, cont IV fe course
Follow BMP
cont bronchitis treatment on prednisone
-
-
Date of Service: June 21, 2025
CC / HPI / ROS
-
Chief Complaint:
MIRLANDE
History of Present Illness:
MIRLANDE/Cr worse to 3.8
off lasix since 06/19 for decompensated HF
weights s up
BP stable
hb low at 7.9
Review of Systems:
no CP
no SOB at rest
no supplemental O2
Labs
-
Labs:
WBC 12.2 10^3/uL (4.8-10.8) H 06/20/25 07:57
RBC 2.85 10^6/uL (4.20-5.40) L 06/20/25 07:57
Hgb 7.9 g/dL (12.0-16.0) L 06/21/25 06:01
Hct 24.0 % (37.0-47.0) L 06/21/25 06:01
Plt Count 210 10^3/uL (130-400) 06/20/25 07:57
Sodium 130 mmol/L (135-145) L 06/21/25 06:01
Potassium 5.0 mmol/L (3.5-5.1) 06/21/25 06:01
Chloride 101 mmol/L (98-107) 06/21/25 06:01
Carbon Dioxide 25 mmol/L (22-30) 06/21/25 06:01
BUN 74 mg/dl (7-17) H 06/21/25 06:01
Creatinine 3.8 mg/dL (0.6-1.0) H 06/21/25 06:01
eGFR 11.91 06/21/25 06:01
Glucose 100 mg/dl (70-99) H 06/21/25 06:01
Calcium 8.7 mg/dl (8.4-10.2) 06/21/25 06:01
Phosphorus 3.5 mg/dl (2.5-4.5) 06/17/25 06:11
Zhh-M-Otiyzwyauvt Pept > 79553 pg/ml 06/16/25 19:20
Albumin 3.1 g/dl (3.5-5.0) L 06/16/25 19:20
Physical Exam
-
Vital Signs:
Vital Signs
Temp Pulse Resp BP Pulse Ox
97.4 F 53 20 108/46 97
06/21/25 07:26 06/21/25 12:24 06/21/25 11:32 06/21/25 12:24 06/21/25 11:32
Cardiovascular:: Regular rate and rhythm
Respiratory:: Bilateral: CTA (decreased BS)
Lung Excursion:: Normal
Abdomen:: Nontender and Soft
Extremity Edema:: None: Bilateral:
Medrano Catheter: No
[2025-06-21] MEDS: ZOFRAN 4 MG IV (14:51)
[2025-06-21 15:17] VITALS: BP 111/41
--- NOTE | 2025-06-21 15:20 | W.PN.CD ---
Today's Communication / Plan
-
resume diuresis
Impression / Plan
-
I/P: 74F with CAD (severe disease not deemed intervenable with PCI due to history of GIB), ICM (LVEF 30-35%), Sjogren's, PKD renal transplant now with CKD, MARCELLO s/p right CEA with moderate disease on the left, and first-degree AV block presented to
the emergency department with a chief complaint of shortness of breath.
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
HFrEF (LVEF 30-35%) acute on chronic
Ischemic cardiomyopathy
- CXR showed mild improvement in interstitial and alveolar cardiogenic pulmonary edema, orthopnea improving
- Weight stable today, Cr worsened to 3.8 from 3.5, RHC with severely elevated filling pressures --> resume diuresis for goal 1-2L negative
- Echocardiogram: LVEF unchanged. PASP now 91 mmHg.
- GDMT as tolerated:
-JESUS/ARB/ARNI: ARB on hold with rising creatinine
-SGLT2 inhibitor: None, would not initiate without nephrology recommendation
-Aldosterone agonist: None due to renal
-Beta bobbi: Carvedilol 25 mg twice daily
-Isosorbide/Hydralazine:�Hydralazine 25 mg daily
-ICD: Reevaluate LVEF after 30 days of maximally tolerated GDMT
- Trend daily weight, I/O, and BMP with diuresis
- Heart failure education
- Dry weight ~135 lbs
Abnormal troponin, in the setting of type II [place] in the setting of heart failure exacerbation
- Peak troponin 6.390, trended down - she completed 48 hours of intravenous heparin
- Chest pain free
Coronary artery disease
- S/p LAD angioplasty 2004 (no stenting due to active GIB)
- 2008 catheterization with MV CAD (80-90% mid LAD and moderate disease in the OM and PDA)
- Stress test in 2021 showed mild ischemia, limited benefit given poor candidate for DAPT and CKD with renal transplant
MIRLANDE on chronic kidney disease stage IV
- PKD status post living donor tranplant (2008) now with CKD
- Follows with nephrology
- Creatinine now up to 3.8, likely cardiorenal in setting of volume overload
Hyponatremia
- Asymptomatic, per nephrology with underlying CKD
Tricuspid regurgitation, mild to moderate, PASP 91 mmHg
Carotid artery stenosis, s/p right CEA, left carotid with >70% stenosis
Hypertension, BP well above goal at last nephrology OV
Hypercholesterolemia with statin intolerance, LDL above goal, consider PCSK9i as an outpatient
GERD/Blackburn's esophagus/GAVE
Sjogren's
SUBJECTIVE:
Denies chest pain and shortness of breath.
Physical Exam
Vital Signs/Labs
Vital Signs
Temp Pulse Resp BP Pulse Ox
36.3 C 53 20 108/46 97
06/21/25 07:26 06/21/25 12:24 06/21/25 11:32 06/21/25 12:24 06/21/25 11:32
06/20/25 06/21/25 06/22/25
06:59 06:59 06:59
Actual Weight 65.771 kg 66.026 kg
06/21/25 06:01
06/21/25 06:01
APTT Cancelled 06/18/25 20:30
Magnesium 1.6 mg/dl (1.6-2.3) 06/17/25 06:11
Triglycerides 122 mg/dl (10-149) 06/17/25 06:11
LDL Cholesterol, Calc 90 mg/dl 06/17/25 06:11
VLDL Cholesterol, Calc 24 mg/dl (0-30) 06/17/25 06:11
HDL Cholesterol 34 mg/dl 06/17/25 06:11
Free T4 1.60 ng/dl (0.78-2.19) 06/17/25 06:11
06/16/25
19:20
Kam-Q-Equpjetuulb Pept > [id number]
Physical Exam
Constitutional: Comfortable
Cardiovascular: Rhythm & rate is regular
Respiratory: Respiratory effort normal
Neuro/Psych: AO x 3
Data Reviewed
-
Date of Service: June 21, 2025
Medical Decision Making: Reviewed Test Results
Labs: Labs Reviewed by me
[2025-06-21 19:24] VITALS: BP 143/58
[2025-06-21] MEDS: TESSALON PERLES 200 MG PO (21:42)
[2025-06-21] MEDS: PROGRAF 0.5 MG PO (21:42)
[2025-06-21 23:14] VITALS: BP 116/48
[2025-06-22 02:39] VITALS: BP 131/53
[2025-06-22] MEDS: SYNTHROID 100 MCG PO (05:43)
[2025-06-22 06:00] VITALS: BMI 30.2
[2025-06-22 07:15] VITALS: BP 142/56
[2025-06-22 07:38] LABS: Hematocrit 23.7 % (37.0-47.0); Hemoglobin 7.7 g/dL (12.0-16.0); Mean Corp Hgb Conc. 32.5 g/dL (33.0-37.0); Mean Corpuscular Volume 86.5 fL (81.0-99.0); Nucleated Red Blood Cells % 0 %; Platelet Count 179 10^3/uL (130-400); Red Cell Dist. Width 13.5 % (11.5-14.5)
[2025-06-22 08:08] VITALS: BMI 30.2
[2025-06-22 08:09] LABS: Blood Urea Nitrogen 84 mg/dl (7-17); Calcium 8.7 mg/dl (8.4-10.2); Carbon Dioxide 22 mmol/L (22-30); Chloride 102 mmol/L (98-107); Estimated Creatinine Clearance 10 ml/min; Glucose 77 mg/dl (70-99); Potassium 4.5 mmol/L (3.5-5.1); Sodium 131 mmol/L (135-145); eGFR 11.20
[2025-06-22] MEDS: COREG 25 MG PO ×2 (08:33→19:29)
[2025-06-22] MEDS: DELTASONE 40 MG PO (08:34)
[2025-06-22] MEDS: MUCINEX 600 MG PO ×2 (08:34→19:28)
[2025-06-22] MEDS: MAGNESIUM OXIDE 400 MG PO (08:34)
[2025-06-22] MEDS: MYFORTIC DELAYED REL. 360 MG PO ×2 (08:34→19:29)
[2025-06-22] MEDS: SINGULAIR 10 MG PO (08:34)
[2025-06-22] MEDS: ASPIR LOW (ENTERIC COATED) 81 MG PO (08:34)
[2025-06-22] MEDS: URSO 500 MG PO ×2 (08:34→19:28)
[2025-06-22] MEDS: SODIUM BICARBONATE 650 MG PO ×2 (08:34→19:29)
[2025-06-22] MEDS: APRESOLINE 25 MG PO ×2 (08:34→19:29)
[2025-06-22] MEDS: LASIX 40 MG IV (08:34)
[2025-06-22] MEDS: NON-FORMULARY ITEM 1 UNIT PO ×2 (08:35→19:28)
[2025-06-22] MEDS: RESTASIS 0.05% OPHTHALMIC EMULSION 1 DROPS BOTH EYES ×2 (08:35→19:28)
[2025-06-22] MEDS: PROGRAF 0.5 MG PO ×2 (08:38→21:04)
[2025-06-22] MEDS: VITAMIN D3 (cholecalciferol) 125 MCG PO (08:39)
[2025-06-22 11:05] VITALS: BP 113/49
--- NOTE | 2025-06-22 11:36 | W.PN.HOSP.TC ---
Today's Communication/Plan
-
Monitor vital signs see plan
Monitor renal function closely
Ongoing diuresis
Assessment / Plan
Assessment / Plan
Gen-AAOx3, NAD
HEENT-NC, AT, anicteric, clear oral mm
Neck-supple
CV-reg, no M, +S1/S2
Lungs-clear bilaterally, no wheezes
Abd-soft, NT, ND
Ext-bilateral lower extremity edema
Musculoskeletal-no cyanosis
Skin-warm and dry, no rash
Neuro-grossly non-focal
Psych-calm, cooperative
A/P:
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 Hypokinesis of the mid to apical anterior, lateral, inferior mixon. Mild to moderate TR. Severely elevated PASP, 91
mmHg.
Does not appear to be on diuretics at home.
Repeat two-view chest x-ray done 06/18 shows severe acute pulmonary edema. Small bilateral pleural effusions. Moderate cardiomegaly.
Lasix currently on hold due to rising creatinine.
Cardiology following
s/p RHC 06/21 with fluid overload. on IV lasix
Nephrology following as well
MIRLANDE on CKD 4 -baseline creatinine 2.2, creatinine rising, 3.8 today. Etiology of MIRLANDE possibly due to cardiorenal syndrome from heart failure.
Nephrology and cardiology following
Hold losartan.
Dr Leavitt spoke with nephrology, appears to have progressive kidney disease of her transplant. No evidence of rejection on biopsy previously.
Hyponatremia-monitor sodium. Probably related to hypervolemia and/or MIRLANDE.
Acute bronchitis -symptoms improved. Likely viral syndrome. Continue prednisone for total 5 days, as needed nebs, Mucinex, Tessalon Perles.
No evidence of pneumonia on chest x-ray. Not hypoxic, not requiring oxygen.
Troponin elevation -without chest pain. Cardiology feels that she may have type II [place] due to demand in the setting of heart failure exacerbation.
Troponin trending down. Received 48 hrs. of IV heparin.
History of living related donor renal transplant 2008 -continue immunosuppression. Tacrolimus level pending.
Polycystic kidney disease-continue to monitor kidney function
Essential hypertension -blood pressures somewhat labile but stable. Continue current meds.
Hypothyroidism -continue levothyroxine.
TSH 6.05, free T4 1.6.
Levothyroxine dose increased from [address] Leavitt discussed with patient.
CAD-continue current anti-ischemic regimen
GERD/Blackburn's esophagus/GAVE-stable
Primary biliary cirrhosis-stable
Sj�gren's syndrome-stable
Diverticulosis-stable
Chronic normocytic anemia -hemoglobin stable at 7.7 today. 8.9 on admission. No evidence of bleeding. Monitor for now.
on IV iron
Obesity due to excess calories
Full code
Total time spent on today's encounter was 52 minutes which included time spent in counseling the patient/family regarding diagnosis and treatment plan as listed above, goals of care, and symptom management. Case was discussed with nursing staff,
specialists, and care coordinators/case management. All labs and imaging personally reviewed by me. Remainder the time spent in detailed review of previous records, lab data, imaging, and other medical provider documentation.
Anticipated Discharge: > 48 hours
Subjective/Interval History
-
Date of Service: June 22, 2025
denies pain
Objective Data
-
Labs:
Laboratory Results
06/22/25
06:48
WBC 8.0
Hgb 7.7 L
Hct 23.7 L
Plt Count 179
Sodium 131 L
Potassium 4.5
Chloride 102
Carbon Dioxide 22
BUN 84 H
Creatinine 4.0 H
Glucose 77
Calcium 8.7
Vital Signs:
Vital Signs
Temp Pulse Resp BP Pulse Ox
97.5 F 57 16 142/56 98
06/22/25 07:15 06/22/25 07:15 06/22/25 07:15 06/22/25 07:15 06/22/25 07:15
I&O
06/21/25 06/22/25 06/23/25
06:59 06:59 06:59
Intake Total 440 / 440 590 / 590
Output Total 400 / 400 500 / 500
Balance 40 / 40 90 / 90
--- NOTE | 2025-06-22 11:42 | W.PN.NEPH.PH ---
Today's Communication / Plan
-
diurese
Assessment/Plan
-
Assessment
Living related renal transplant 2008
CKD 4 with subnephrotic range proteinuria baseline creatinine 2.2
Pulm edema, lower extreme edema
Hypertension
Hypothyroidism
Primary biliary cirrhosis
Sjogren's
MIRLANDE
Heart failure reduced ejection fraction 30% on February 28, 2025 echocardiogram
Plan
increase lasix to 80mg IV BID
d/w pt cardiorenal syndrome
It is more concerning that clinically she seems euvolemic but on paper is grossly volume overloaded.
check PVR
IV iron
-
-
Date of Service: June 22, 2025
CC / HPI / ROS
-
Chief Complaint:
MIRLANDE
History of Present Illness:
MIRLANDE/Cr worse to 4.0, BUN 84 higher
off lasix since 06/19 for decompensated HF, weight marginally different
BP stable
hb low at 7.7
Review of Systems:
no CP
no SOB at rest
no supplemental O2
Labs
-
Labs:
WBC 8.0 10^3/uL (4.8-10.8) 06/22/25 06:48
RBC 2.74 10^6/uL (4.20-5.40) L 06/22/25 06:48
Hgb 7.7 g/dL (12.0-16.0) L 06/22/25 06:48
Hct 23.7 % (37.0-47.0) L 06/22/25 06:48
Plt Count 179 10^3/uL (130-400) 06/22/25 06:48
Sodium 131 mmol/L (135-145) L 06/22/25 06:48
Potassium 4.5 mmol/L (3.5-5.1) 06/22/25 06:48
Chloride 102 mmol/L (98-107) 06/22/25 06:48
Carbon Dioxide 22 mmol/L (22-30) 06/22/25 06:48
BUN 84 mg/dl (7-17) H 06/22/25 06:48
Creatinine 4.0 mg/dL (0.6-1.0) H 06/22/25 06:48
eGFR 11.20 06/22/25 06:48
Glucose 77 mg/dl (70-99) 06/22/25 06:48
Calcium 8.7 mg/dl (8.4-10.2) 06/22/25 06:48
Phosphorus 3.5 mg/dl (2.5-4.5) 06/17/25 06:11
Zeb-N-Xlkbbqtkdwe Pept > 33199 pg/ml 06/16/25 19:20
Albumin 3.1 g/dl (3.5-5.0) L 06/16/25 19:20
Physical Exam
-
Vital Signs:
Vital Signs
Temp Pulse Resp BP Pulse Ox
97.5 F 57 16 142/56 98
06/22/25 07:15 06/22/25 07:15 06/22/25 07:15 06/22/25 07:15 06/22/25 07:15
Cardiovascular:: Regular rate and rhythm
Respiratory:: Bilateral: CTA
Lung Excursion:: Normal
Abdomen:: Nontender and Soft
Bowel Sounds:: Normal
Extremity Edema:: None: Bilateral:
--- NOTE | 2025-06-22 13:25 | W.PN.CD ---
Addendum entered and electronically signed by Elmer Chandler MD 06/22/25 17:06:
I saw and evaluated the patient, and I provided the substantive portion of the medical decision making.
I reviewed and agree with the note by Alina Allen and it accurately reflects our care.
I personally performed the medical decision making of the this encounter and my assessment and plan is below:
She is feeling well without complaint. She is anxious for some renal improvement.
On exam she has clear lungs to auscultation bilaterally, regular rate and rhythm no peripheral edema
Impression/plan
Heart failure reduced ejection fraction: Acute, pulmonary capillary wedge pressure was 30 on right heart cath yesterday, despite this volume exam is consistent with euvolemia, diuresis has been increased with the aid of nephrology, continue
beta-bobbi
Acute on chronic kidney failure: History of living donor transplant in 2008, suspect cardiorenal etiology of acute failure, continue to reassess as repeated attempts at IV diuresis occur
CAD: Continue aspirin, no chest pain
RHC:06/21/25
HEMODYNAMIC DATA
wt 145lbs 9 oz
SBP 114/55 (mean 79) mmHg
RA 13 mmHg
RV 50/10 (EDP 18) mmHg
PA 52/25 (mean 35) mmHg
PCWP 30 with V waves to 48 mmHg
SaO2 96.0%
SvO2 69.8%
Hb 8.3 g/dL
Weight 66.0 kg
CO/CI 6.71/4.23 L/min/m2
SVR 787 dsc*-5
PVR 0.8 Wood units
CONCLUSION: elevated biventricular filling pressures, moderate postcapillary pulmonary hypertension, and high-normal cardiac output with low SVR.
RECOMMENDATION: resume diuresis
Original Note:
Today's Communication / Plan
-
Continue IV diuresis and monitor response. Nephrology is managing with her renal dysfunction.
Impression / Plan
-
I/P: 74F with CAD (severe disease not deemed intervenable with PCI due to history of GIB), ICM (LVEF 30-35%), Sjogren's, PKD renal transplant now with CKD, MARCELLO s/p right CEA with moderate disease on the left, and first-degree AV block presented to
the emergency department with a chief complaint of shortness of breath.
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
HFrEF (LVEF 30-35%) acute on chronic:
Ischemic cardiomyopathy
-CXR showed mild improvement in interstitial and alveolar cardiogenic pulmonary edema
-SOB resolved, but RHC with severely elevated filling pressures --> resume diuresis for goal 1-2L negative. Weight down 1 lb since yesterday. Nephrology has increased diuresis. Monitor response.
-Echocardiogram: LVEF unchanged. PASP now 91 mmHg.
-GDMT as tolerated:
-JESUS/ARB/ARNI: ARB on hold with rising creatinine
-SGLT2 inhibitor: None, would not initiate without nephrology recommendation. Not currently with MIRLANDE on CKD.
-Aldosterone agonist: None due to renal
-Beta bobbi: on carvedilol 25 mg twice daily
-Isosorbide/Hydralazine:�on hydralazine 25 mg BID
-ICD: Reevaluate LVEF after 30 days of maximally tolerated GDMT
- Trend daily weight, I/O, and BMP with diuresis
- Heart failure education
- Dry weight ~135 lbs
Abnormal troponin, in the setting of type II [place] in the setting of heart failure exacerbation
- Peak troponin 6.390, trended down - she completed 48 hours of intravenous heparin
- Chest pain free
Coronary artery disease
- S/p LAD angioplasty 2004 (no stenting due to active GIB)
- 2008 catheterization with MV CAD (80-90% mid LAD and moderate disease in the OM and PDA)
- Stress test in 2021 showed mild ischemia, limited benefit given poor candidate for DAPT and CKD with renal transplant
MIRLANDE on chronic kidney disease stage IV
-PKD status post living donor transplant (2008) now with CKD
-Creatinine now up to 4.0, likely cardiorenal in setting of volume overload
-nephrology on the case and has increased diuretics
Hyponatremia
- Asymptomatic, per nephrology with underlying CKD
Tricuspid regurgitation, mild to moderate, PASP 91 mmHg
Carotid artery stenosis, s/p right CEA, left carotid with >70% stenosis
Hypertension: follow
Hypercholesterolemia with statin intolerance, LDL above goal, consider PCSK9i as an outpatient
GERD/Blackburn's esophagus/GAVE
Sjogren's
Anemia: chronic, seems to be stable overall- monitor
SUBJECTIVE:
feels well. No SOB.
Physical Exam
Vital Signs/Labs
Vital Signs
Temp Pulse Resp BP Pulse Ox
97.5 F 55 16 113/49 97
06/22/25 11:05 06/22/25 11:05 06/22/25 11:05 06/22/25 11:05 06/22/25 11:05
06/21/25 06/22/25 06/23/25
06:59 06:59 06:59
Actual Weight 145 lb 9 oz 144 lb 9 oz
06/22/25 06:48
06/22/25 06:48
APTT Cancelled 06/18/25 20:30
Magnesium 1.6 mg/dl (1.6-2.3) 06/17/25 06:11
Triglycerides 122 mg/dl (10-149) 06/17/25 06:11
LDL Cholesterol, Calc 90 mg/dl 06/17/25 06:11
VLDL Cholesterol, Calc 24 mg/dl (0-30) 06/17/25 06:11
HDL Cholesterol 34 mg/dl 06/17/25 06:11
Free T4 1.60 ng/dl (0.78-2.19) 06/17/25 06:11
06/16/25
19:20
Xgy-J-Qrqxkqkimdj Pept > [id number]
Physical Exam
Constitutional: No acute distress
EENT: Anicteric
Cardiovascular: Rhythm & rate is regular
Respiratory: Respiratory effort normal and Lungs clear to auscul.
Neuro/Psych: AO x 3
Other: Cath Site (no hematoma to right brachial site)
Data Reviewed
-
Date of Service: June 22, 2025
EKG: Other (RHC, echo report)
Labs: Labs Reviewed by me
[2025-06-22] MEDS: FERRLECIT 110 MG IV (14:49)
[2025-06-22 15:15] VITALS: BP 125/45
[2025-06-22] MEDS: LASIX 80 MG IV (16:36)
--- NOTE | 2025-06-22 16:49 | CM ---
Pt denies any needs at discharge. She has been ambulatory in the room, self care.
[2025-06-22] MEDS: TESSALON PERLES 200 MG PO (19:27)
[2025-06-22 19:36] VITALS: BP 130/45
[2025-06-22 22:53] VITALS: BP 100/74
[2025-06-23 03:35] VITALS: BP 140/64
[2025-06-23] MEDS: SYNTHROID 100 MCG PO (05:09)
[2025-06-23 06:00] VITALS: BMI 30.2
[2025-06-23 07:10] LABS: Hematocrit 23.7 % (37.0-47.0); Hemoglobin 7.7 g/dL (12.0-16.0); Mean Corp Hgb Conc. 32.5 g/dL (33.0-37.0); Mean Corpuscular Volume 85.6 fL (81.0-99.0); Nucleated Red Blood Cells % 0 %; Platelet Count 189 10^3/uL (130-400); Red Cell Dist. Width 13.7 % (11.5-14.5)
[2025-06-23 07:15] VITALS: BP 141/56
[2025-06-23 07:48] LABS: Blood Urea Nitrogen 91 mg/dl (7-17); Calcium 8.5 mg/dl (8.4-10.2); Carbon Dioxide 24 mmol/L (22-30); Chloride 102 mmol/L (98-107); Estimated Creatinine Clearance 9 ml/min; Glucose 89 mg/dl (70-99); Potassium 4.5 mmol/L (3.5-5.1); Sodium 132 mmol/L (135-145); eGFR 10.27
[2025-06-23] MEDS: RESTASIS 0.05% OPHTHALMIC EMULSION 1 DROPS BOTH EYES ×2 (08:44→19:30)
[2025-06-23] MEDS: MUCINEX 600 MG PO ×2 (08:45→19:29)
[2025-06-23] MEDS: APRESOLINE 25 MG PO ×2 (08:45→19:31)
[2025-06-23] MEDS: SODIUM BICARBONATE 650 MG PO ×2 (08:45→19:31)
[2025-06-23] MEDS: ASPIR LOW (ENTERIC COATED) 81 MG PO (08:45)
[2025-06-23] MEDS: URSO 500 MG PO ×2 (08:45→19:29)
[2025-06-23] MEDS: COREG 25 MG PO ×2 (08:45→19:31)
[2025-06-23] MEDS: MYFORTIC DELAYED REL. 360 MG PO ×2 (08:45→19:30)
[2025-06-23] MEDS: MAGNESIUM OXIDE 400 MG PO (08:45)
[2025-06-23] MEDS: LASIX 80 MG IV (08:46)
[2025-06-23] MEDS: SINGULAIR 10 MG PO (08:46)
[2025-06-23] MEDS: NON-FORMULARY ITEM 1 UNIT PO ×2 (08:47→17:35)
--- NOTE | 2025-06-23 10:27 | W.PN.CD ---
Today's Communication / Plan
-
diuresis per nephrology
No new cardiac recommendations
I will see again at your request
Impression / Plan
-
I/P: 74F with CAD (severe disease not deemed intervenable with PCI due to history of GIB), ICM (LVEF 30-35%), Sjogren's, PKD renal transplant now with CKD, MARCELLO s/p right CEA with moderate disease on the left, and first-degree AV block presented to
the emergency department with a chief complaint of shortness of breath.
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
HFrEF (LVEF 30-35%) acute on chronic:
Ischemic cardiomyopathy
-CXR showed mild improvement in interstitial and alveolar cardiogenic pulmonary edema
-SOB resolved, but RHC with severely elevated filling pressures --> resume diuresis for goal 1-2L negative. Weight down 1 lb since yesterday. Nephrology has increased diuresis. Monitor response.
-Echocardiogram: LVEF unchanged. PASP now 91 mmHg.
-GDMT as tolerated:
-JESUS/ARB/ARNI: ARB on hold with rising creatinine
-SGLT2 inhibitor: None, would not initiate without nephrology recommendation. Not currently with MIRLANDE on CKD.
-Aldosterone agonist: None due to renal
-Beta bobbi: on carvedilol 25 mg twice daily
-Isosorbide/Hydralazine:�on hydralazine 25 mg BID
-ICD: Reevaluate LVEF after 30 days of maximally tolerated GDMT
- Trend daily weight, I/O, and BMP with diuresis
- Heart failure education
- Dry weight ~135 lbs
Abnormal troponin, in the setting of type II [place] in the setting of heart failure exacerbation
- Peak troponin 6.390, trended down - she completed 48 hours of intravenous heparin
- Chest pain free
Coronary artery disease
- S/p LAD angioplasty 2004 (no stenting due to active GIB)
- 2009 catheterization with MV CAD (80-90% mid LAD and moderate disease in the OM and PDA)
- Stress test in 2021 showed mild ischemia, limited benefit given poor candidate for DAPT and CKD with renal transplant
MIRLANDE on chronic kidney disease stage IV
-PKD status post living donor transplant (2008) now with CKD
-Creatinine now up to 4.32, seems likely cardiorenal in setting of volume overload, she is not hypotensive or orthostatic
-nephrology on the case and has been directing diuretics
Hyponatremia
- Asymptomatic, per nephrology with underlying CKD
Tricuspid regurgitation, mild to moderate, PASP 91 mmHg
Carotid artery stenosis, s/p right CEA, left carotid with >70% stenosis
Hypertension: follow
Hypercholesterolemia with statin intolerance, LDL above goal, consider PCSK9i as an outpatient
GERD/Blackburn's esophagus/GAVE
Sjogren's
Anemia: chronic, seems to be stable overall- monitor
SUBJECTIVE:
feels well. No SOB.
Data:
RHC:06/21/25
HEMODYNAMIC DATA
wt 145lbs 9 oz
SBP 114/55 (mean 79) mmHg
RA 13 mmHg
RV 50/10 (EDP 18) mmHg
PA 52/25 (mean 35) mmHg
PCWP 30 with V waves to 48 mmHg
SaO2 96.0%
SvO2 69.8%
Hb 8.3 g/dL
Weight 66.0 kg
CO/CI 6.71/4.23 L/min/m2
SVR 787 dsc*-5
PVR 0.8 Wood units
CONCLUSION: elevated biventricular filling pressures, moderate postcapillary pulmonary hypertension, and high-normal cardiac output with low SVR.
RECOMMENDATION: resume diuresis
Physical Exam
Vital Signs/Labs
Vital Signs
Temp Pulse Resp BP Pulse Ox
97.5 F 63 16 141/56 98
06/23/25 07:15 06/23/25 08:46 06/23/25 07:15 06/23/25 08:46 06/23/25 09:57
06/22/25 06/23/25 06/24/25
06:59 06:59 06:59
Actual Weight 144 lb 9 oz 144 lb 9 oz
06/23/25 06:33
06/23/25 06:33
APTT Cancelled 06/18/25 20:30
Magnesium 1.6 mg/dl (1.6-2.3) 06/17/25 06:11
Triglycerides 122 mg/dl (10-149) 06/17/25 06:11
LDL Cholesterol, Calc 90 mg/dl 06/17/25 06:11
VLDL Cholesterol, Calc 24 mg/dl (0-30) 06/17/25 06:11
HDL Cholesterol 34 mg/dl 06/17/25 06:11
Free T4 1.60 ng/dl (0.78-2.19) 06/17/25 06:11
06/16/25
19:20
Apz-O-Jlcrzjoxotc Pept > [id number]
Physical Exam
Constitutional: No acute distress
Cardiovascular: Rhythm & rate is regular, Systolic murmur absent, Diastolic murmur absent and Pedal edema present (trace edema)
Respiratory: Respiratory effort normal, Lungs clear to auscul., Wheeze Absent, Crackles Absent and Rhonchi Absent
Neuro/Psych: AO x 3
Data Reviewed
-
Date of Service: June 23, 2025
Medical Decision Making: Review of Case with other Provider (no new reccs, will sign off)
[2025-06-23 11:05] VITALS: BP 114/47
--- NOTE | 2025-06-23 11:08 | W.PN.NEPH.PH ---
Today's Communication / Plan
-
follow BMP
Assessment/Plan
-
Assessment
Living related renal transplant 2008
CKD 4 with subnephrotic range proteinuria baseline creatinine 2.2
Pulm edema, lower extreme edema
Hypertension
Hypothyroidism
Primary biliary cirrhosis
Sjogren's
MIRLANDE
Heart failure reduced ejection fraction 30% on February 28, 2025 echocardiogram
Plan
stop lasix
It is more concerning that clinically she seems euvolemic but on paper is grossly volume overloaded.
repeat CXR
Difficult to justify need for aggressive diuresis currently
IV iron course
await FK level
-
-
Date of Service: June 23, 2025
CC / HPI / ROS
-
Chief Complaint:
MIRLANDE
History of Present Illness:
MIRLANDE/Cr worse to 4.3, BUN 912 higher
on lasix since 06/19 for decompensated HF, weight marginally different
BP stable
hb low at 7.7 stable
Review of Systems:
no CP
no SOB at rest
no supplemental O2
Labs
-
Labs:
WBC 9.4 10^3/uL (4.8-10.8) 06/23/25 06:33
RBC 2.77 10^6/uL (4.20-5.40) L 06/23/25 06:33
Hgb 7.7 g/dL (12.0-16.0) L 06/23/25 06:33
Hct 23.7 % (37.0-47.0) L 06/23/25 06:33
Plt Count 189 10^3/uL (130-400) 06/23/25 06:33
Sodium 132 mmol/L (135-145) L 06/23/25 06:33
Potassium 4.5 mmol/L (3.5-5.1) 06/23/25 06:33
Chloride 102 mmol/L (98-107) 06/23/25 06:33
Carbon Dioxide 24 mmol/L (22-30) 06/23/25 06:33
BUN 91 mg/dl (7-17) H 06/23/25 06:33
Creatinine 4.3 mg/dL (0.6-1.0) H* 06/23/25 06:33
eGFR 10.27 06/23/25 06:33
Glucose 89 mg/dl (70-99) 06/23/25 06:33
Calcium 8.5 mg/dl (8.4-10.2) 06/23/25 06:33
Phosphorus 3.5 mg/dl (2.5-4.5) 06/17/25 06:11
Niu-R-Wwwpwxfksis Pept > 74603 pg/ml 06/16/25 19:20
Albumin 3.1 g/dl (3.5-5.0) L 06/16/25 19:20
Physical Exam
-
Vital Signs:
Vital Signs
Temp Pulse Resp BP Pulse Ox
97.5 F 63 16 141/56 98
06/23/25 07:15 06/23/25 08:46 06/23/25 07:15 06/23/25 08:46 06/23/25 09:57
Cardiovascular:: Regular rate and rhythm
Respiratory:: Bilateral: CTA
Lung Excursion:: Normal
Abdomen:: Nontender and Soft
Bowel Sounds:: Normal
Extremity Edema:: None: Bilateral:
--- NOTE | 2025-06-23 11:42 | W.PN.HOSP.TC ---
Today's Communication/Plan
-
Monitor vitals
See plan
Creatinine 4.3 today, hold further Lasix and monitor
Nephrology following
Assessment / Plan
Assessment / Plan
Gen-AAOx3, NAD
HEENT-NC, AT, anicteric, clear oral mm
Neck-supple
CV-reg, no M, +S1/S2
Lungs-clear bilaterally, no wheezes
Abd-soft, NT, ND
Ext-bilateral lower extremity edema
Musculoskeletal-no cyanosis
Skin-warm and dry, no rash
Neuro-grossly non-focal
Psych-calm, cooperative
A/P:
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 Hypokinesis of the mid to apical anterior, lateral, inferior mixon. Mild to moderate TR. Severely elevated PASP, 91
mmHg.
Does not appear to be on diuretics at home.
Repeat two-view chest x-ray done 06/18 shows severe acute pulmonary edema. Small bilateral pleural effusions. Moderate cardiomegaly.
Lasix now on hold due to rising creatinine.
Cardiology following
s/p RHC 06/21 with fluid overload. Was on IV diuresis however creatinine continued to rise. Now holding Lasix. Nephrology managing
MIRLANDE on CKD 4 -baseline creatinine 2.2, creatinine rising, 4.3 today. Etiology of MIRLANDE possibly due to cardiorenal syndrome from heart failure.
Nephrology and cardiology following
Hold losartan.
Dr Leavitt spoke with nephrology, appears to have progressive kidney disease of her transplant. No evidence of rejection on biopsy previously.
monitor tac level
Hyponatremia-monitor sodium. Probably related to hypervolemia and/or MIRLANDE.
Acute bronchitis -symptoms improved. Likely viral syndrome. Finished prednisone. cw as needed nebs, Mucinex, Tessalon Perles.
No evidence of pneumonia on chest x-ray. Not hypoxic, not requiring oxygen.
Troponin elevation -without chest pain. Cardiology feels that she may have type II [place] due to demand in the setting of heart failure exacerbation.
Troponin trending down. Received 48 hrs. of IV heparin.
History of living related donor renal transplant 2008 -continue immunosuppression. monitor Tacrolimus level
Polycystic kidney disease-continue to monitor kidney function
Essential hypertension -blood pressures somewhat labile but stable. Continue current meds.
Hypothyroidism -continue levothyroxine.
TSH 6.05, free T4 1.6.
Levothyroxine dose increased from [address] Leavitt discussed with patient.
CAD-continue current anti-ischemic regimen
GERD/Blackburn's esophagus/GAVE-stable
Primary biliary cirrhosis-stable
Sj�gren's syndrome-stable
Diverticulosis-stable
Chronic normocytic anemia -hemoglobin stable at 7.7 today. 8.9 on admission. No evidence of bleeding. Monitor for now.
on IV iron
Obesity due to excess calories
Full code
Total time spent on today's encounter was 51 minutes which included time spent in counseling the patient/family regarding diagnosis and treatment plan as listed above, goals of care, and symptom management. Case was discussed with nursing staff,
specialists, and care coordinators/case management. All labs and imaging personally reviewed by me. Remainder the time spent in detailed review of previous records, lab data, imaging, and other medical provider documentation.
Anticipated Discharge: > 48 hours
Subjective/Interval History
-
Date of Service: June 23, 2025
denies pain
Objective Data
-
Labs:
Laboratory Results
06/23/25
06:33
WBC 9.4
Hgb 7.7 L
Hct 23.7 L
Plt Count 189
Sodium 132 L
Potassium 4.5
Chloride 102
Carbon Dioxide 24
BUN 91 H
Creatinine 4.3 H*
Glucose 89
Calcium 8.5
Vital Signs:
Vital Signs
Temp Pulse Resp BP Pulse Ox
97.5 F 63 16 141/56 98
06/23/25 07:15 06/23/25 08:46 06/23/25 07:15 06/23/25 08:46 06/23/25 09:57
I&O
06/22/25 06/23/25 06/24/25
06:59 06:59 06:59
Intake Total 590 / 590 580 / 580
Output Total 500 / 500 650 / 650
Balance 90 / 90 -70 / -70
[2025-06-23] MEDS: TYLENOL 650 MG PO ×3 (11:47→22:05)
[2025-06-23] MEDS: FERRLECIT 110 MG IV (13:04)
[2025-06-23 15:15] VITALS: BP 113/45
[2025-06-23 19:03] VITALS: BP 128/65
[2025-06-23] MEDS: PROGRAF 0.5 MG PO (21:26)
[2025-06-23 23:00] VITALS: BP 100/36
[2025-06-24 03:10] VITALS: BP 123/42
[2025-06-24] MEDS: SYNTHROID 100 MCG PO (05:13)
[2025-06-24] MEDS: NON-FORMULARY ITEM 1 UNIT PO ×3 (05:15→20:06)
[2025-06-24] MEDS: TYLENOL 650 MG PO ×2 (05:17→14:12)
[2025-06-24 06:00] VITALS: BMI 30.3
[2025-06-24 06:44] LABS: Hematocrit 24.6 % (37.0-47.0); Hemoglobin 7.9 g/dL (12.0-16.0); Mean Corp Hgb Conc. 32.1 g/dL (33.0-37.0); Mean Corpuscular Volume 86.6 fL (81.0-99.0); Nucleated Red Blood Cells % 0 %; Platelet Count 192 10^3/uL (130-400); Red Cell Dist. Width 13.8 % (11.5-14.5)
[2025-06-24 07:00] VITALS: BP 138/51
[2025-06-24 07:09] LABS: Blood Urea Nitrogen 88 mg/dl (7-17); Calcium 8.7 mg/dl (8.4-10.2); Carbon Dioxide 25 mmol/L (22-30); Chloride 104 mmol/L (98-107); Estimated Creatinine Clearance 9 ml/min; Glucose 93 mg/dl (70-99); Potassium 4.2 mmol/L (3.5-5.1); Sodium 133 mmol/L (135-145); eGFR 9.47
[2025-06-24] MEDS: MYFORTIC DELAYED REL. 360 MG PO ×2 (07:40→20:03)
[2025-06-24] MEDS: RESTASIS 0.05% OPHTHALMIC EMULSION 1 DROPS BOTH EYES ×2 (07:40→20:03)
[2025-06-24] MEDS: ASPIR LOW (ENTERIC COATED) 81 MG PO (07:40)
[2025-06-24] MEDS: COREG 25 MG PO ×2 (07:40→20:03)
[2025-06-24] MEDS: URSO 500 MG PO ×2 (07:41→20:03)
[2025-06-24] MEDS: SODIUM BICARBONATE 650 MG PO ×2 (07:42→20:03)
[2025-06-24] MEDS: MUCINEX 600 MG PO ×2 (07:42→20:03)
[2025-06-24] MEDS: MAGNESIUM OXIDE 400 MG PO (07:42)
[2025-06-24] MEDS: SINGULAIR 10 MG PO (07:42)
[2025-06-24] MEDS: APRESOLINE 25 MG PO ×2 (07:42→20:02)
[2025-06-24] MEDS: VITAMIN D3 (cholecalciferol) 125 MCG PO (07:43)
[2025-06-24] MEDS: PROGRAF 0.5 MG PO ×2 (07:43→21:16)
[2025-06-24 11:03] VITALS: BP 116/44
--- NOTE | 2025-06-24 11:10 | W.PN.NEPH.PH ---
Addendum entered and electronically signed by Keke Baez MD 06/24/25 11:45:
I am ok with low dose ambien prn for insomnia as she takes at home
Original Note:
Today's Communication / Plan
-
see plan
Assessment/Plan
-
Assessment
Living related renal transplant 2008
CKD 4 with subnephrotic range proteinuria baseline creatinine 2.2
Pulm edema, lower extreme edema
Hypertension
Hypothyroidism
Primary biliary cirrhosis
Sjogren's
MIRLANDE
Heart failure reduced ejection fraction 30% on February 28, 2025 echocardiogram
Plan
MIRLANDE-cr cont to rise at 4.6 and non oliguric
cont to hold lasix
It is more concerning that clinically she seems euvolemic but on paper is grossly volume overloaded.
Difficult to justify need for aggressive diuresis currently
IV iron course
FK level at 10 on 06/21, however was very stable chronically with out dose adjustment-will follow repeat
Reviewed with pt that we do not have clear etiology of MIRLANDE other than CRS
if renal function cont to worsen likely need HD in next few days
She is not refusing dialysis
high risk encounter
follow labs and UOP
d/w nursing
-
-
Date of Service: June 24, 2025
CC / HPI / ROS
-
Chief Complaint:
MIRLANDE
History of Present Illness:
MIRLANDE/Cr worse to 4.6, BUN 88 higher
decompensated HF, weight no change off lasix
BP stable
hb low at 7.9 stable
Review of Systems:
no CP
no SOB at rest
no supplemental O2
Labs
-
Labs:
WBC 7.2 10^3/uL (4.8-10.8) 06/24/25 06:06
RBC 2.84 10^6/uL (4.20-5.40) L 06/24/25 06:06
Hgb 7.9 g/dL (12.0-16.0) L 06/24/25 06:06
Hct 24.6 % (37.0-47.0) L 06/24/25 06:06
Plt Count 192 10^3/uL (130-400) 06/24/25 06:06
Sodium 133 mmol/L (135-145) L 06/24/25 06:06
Potassium 4.2 mmol/L (3.5-5.1) 06/24/25 06:06
Chloride 104 mmol/L (98-107) 06/24/25 06:06
Carbon Dioxide 25 mmol/L (22-30) 06/24/25 06:06
BUN 88 mg/dl (7-17) H 06/24/25 06:06
Creatinine 4.6 mg/dL (0.6-1.0) H* 06/24/25 06:06
eGFR 9.47 06/24/25 06:06
Glucose 93 mg/dl (70-99) 06/24/25 06:06
Calcium 8.7 mg/dl (8.4-10.2) 06/24/25 06:06
Phosphorus 3.5 mg/dl (2.5-4.5) 06/17/25 06:11
Hnm-T-Reimnpseqmu Pept > 26817 pg/ml 06/16/25 19:20
Albumin 3.1 g/dl (3.5-5.0) L 06/16/25 19:20
Physical Exam
-
Vital Signs:
Vital Signs
Temp Pulse Resp BP Pulse Ox
97.3 F 56 16 116/44 99
06/24/25 11:03 06/24/25 11:03 06/24/25 11:03 06/24/25 11:03 06/24/25 11:03
Cardiovascular:: Regular rate and rhythm
Respiratory:: Bilateral: Rales (at bases)
Lung Excursion:: Normal
Abdomen:: Nontender and Soft
Bowel Sounds:: Normal
Extremity Edema:: None: Bilateral:
Medrano Catheter: No
--- NOTE | 2025-06-24 11:36 | W.PN.HOSP.TC ---
Today's Communication/Plan
-
Monitor vitals
See plan
Worsening creatinine
Monitor renal function closely
Monitor urine output
Nephrology following
Assessment / Plan
Assessment / Plan
Gen-AAOx3, NAD
HEENT-NC, AT, anicteric, clear oral mm
Neck-supple
CV-reg, no M, +S1/S2
Lungs-clear bilaterally, no wheezes
Abd-soft, NT, ND
Ext-bilateral lower extremity edema
Musculoskeletal-no cyanosis
Skin-warm and dry, no rash
Neuro-grossly non-focal
Psych-calm, cooperative
A/P:
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 Hypokinesis of the mid to apical anterior, lateral, inferior mixon. Mild to moderate TR. Severely elevated PASP, 91
mmHg.
Does not appear to be on diuretics at home.
Repeat two-view chest x-ray done 06/18 shows severe acute pulmonary edema. Small bilateral pleural effusions. Moderate cardiomegaly.
Lasix now on hold due to rising creatinine.
Cardiology following
s/p RHC 06/21 with fluid overload. Was on IV diuresis however creatinine continued to rise. Now holding Lasix. Nephrology managing
MIRLANDE on CKD 4 -baseline creatinine 2.2, creatinine rising, 4.6 today. Etiology of MIRLANDE possibly due to cardiorenal syndrome from heart failure.
Nephrology following, if do not improve then might need dialysis
Hold losartan.
Dr Leavitt spoke with nephrology, appears to have progressive kidney disease of her transplant. No evidence of rejection on biopsy previously.
monitor tac level
Hyponatremia-monitor sodium. Probably related to hypervolemia and/or MIRLANDE.
Acute bronchitis -symptoms improved. Likely viral syndrome. Finished prednisone. cw as needed nebs, Mucinex, Tessalon Perles.
No evidence of pneumonia on chest x-ray. Not hypoxic, not requiring oxygen.
Troponin elevation -without chest pain. Cardiology feels that she may have type II [place] due to demand in the setting of heart failure exacerbation.
Troponin trending down. Received 48 hrs. of IV heparin.
History of living related donor renal transplant 2008 -continue immunosuppression. monitor Tacrolimus level
Polycystic kidney disease-continue to monitor kidney function
Essential hypertension -blood pressures somewhat labile but stable. Continue current meds.
Hypothyroidism -continue levothyroxine.
TSH 6.05, free T4 1.6.
Levothyroxine dose increased from [address] Leavitt discussed with patient.
CAD-continue current anti-ischemic regimen
GERD/Blackburn's esophagus/GAVE-stable
Primary biliary cirrhosis-stable
Sj�gren's syndrome-stable
Diverticulosis-stable
Chronic normocytic anemia -hemoglobin stable at 7.9 today. 8.9 on admission. No evidence of bleeding. Monitor for now.
on IV iron
Obesity due to excess calories
Full code
Anticipated Discharge: > 48 hours
Subjective/Interval History
-
Date of Service: June 24, 2025
Denies pain
Objective Data
-
Labs:
Laboratory Results
06/24/25
06:06
WBC 7.2
Hgb 7.9 L
Hct 24.6 L
Plt Count 192
Sodium 133 L
Potassium 4.2
Chloride 104
Carbon Dioxide 25
BUN 88 H
Creatinine 4.6 H*
Glucose 93
Calcium 8.7
Vital Signs:
Vital Signs
Temp Pulse Resp BP Pulse Ox
97.3 F 56 16 116/44 99
06/24/25 11:03 06/24/25 11:03 06/24/25 11:03 06/24/25 11:03 06/24/25 11:03
I&O
06/23/25 06/24/2506/25/25
06:59 06:59 06:59
Intake Total 580 / 580 1635 / 1635
Output Total 650 / 650 700 / 700 475 / 475
Balance -70 / -70 935 / 935 -475 / -475
[2025-06-24] MEDS: FERRLECIT 110 MG IV (13:48)
[2025-06-24 15:53] VITALS: BP 121/46
[2025-06-24] MEDS: TESSALON PERLES 200 MG PO (21:17)
[2025-06-24] MEDS: AMBIEN 5 MG PO (21:18)
[2025-06-24 23:16] VITALS: BP 135/42
[2025-06-25 06:00] VITALS: BMI 30.2
[2025-06-25] MEDS: SYNTHROID 100 MCG PO (06:08)
[2025-06-25 07:50] VITALS: BP 141/54
[2025-06-25 08:19] LABS: Hematocrit 24.1 % (37.0-47.0); Hemoglobin 7.9 g/dL (12.0-16.0); Mean Corp Hgb Conc. 32.8 g/dL (33.0-37.0); Mean Corpuscular Volume 88.9 fL (81.0-99.0); Nucleated Red Blood Cells % 0 %; Platelet Count 211 10^3/uL (130-400); Red Cell Dist. Width 13.9 % (11.5-14.5)
[2025-06-25 08:50] LABS: Blood Urea Nitrogen 88 mg/dl (7-17); Calcium 8.5 mg/dl (8.4-10.2); Carbon Dioxide 23 mmol/L (22-30); Chloride 105 mmol/L (98-107); Estimated Creatinine Clearance 9 ml/min; Glucose 82 mg/dl (70-99); Potassium 4.2 mmol/L (3.5-5.1); Sodium 135 mmol/L (135-145); eGFR 9.99
[2025-06-25] MEDS: SINGULAIR 10 MG PO (09:03)
[2025-06-25] MEDS: URSO 500 MG PO ×2 (09:03→19:49)
[2025-06-25] MEDS: MAGNESIUM OXIDE 400 MG PO (09:03)
[2025-06-25] MEDS: MYFORTIC DELAYED REL. 360 MG PO ×2 (09:03→19:51)
[2025-06-25] MEDS: COREG 25 MG PO ×2 (09:03→19:51)
[2025-06-25] MEDS: SODIUM BICARBONATE 650 MG PO ×2 (09:03→19:50)
[2025-06-25] MEDS: ASPIR LOW (ENTERIC COATED) 81 MG PO (09:03)
[2025-06-25] MEDS: MUCINEX 600 MG PO ×2 (09:03→19:50)
[2025-06-25] MEDS: APRESOLINE 25 MG PO ×2 (09:03→19:51)
[2025-06-25] MEDS: RESTASIS 0.05% OPHTHALMIC EMULSION 1 DROPS BOTH EYES ×2 (09:04→19:50)
[2025-06-25] MEDS: NON-FORMULARY ITEM 1 UNIT PO ×2 (09:04→19:52)
--- NOTE | 2025-06-25 11:50 | W.PN.HOSP.TC ---
Today's Communication/Plan
-
Monitor vitals
See plan
Creatinine mildly improved to 4.4 today
Continue to monitor renal function
Nephrology following
Assessment / Plan
Assessment / Plan
Gen-AAOx3, NAD
HEENT-NC, AT, anicteric, clear oral mm
Neck-supple
CV-reg, no M, +S1/S2
Lungs-clear bilaterally, no wheezes
Abd-soft, NT, ND
Ext-bilateral lower extremity edema
Musculoskeletal-no cyanosis
Skin-warm and dry, no rash
Neuro-grossly non-focal
Psych-calm, cooperative
A/P:
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 Hypokinesis of the mid to apical anterior, lateral, inferior mixon. Mild to moderate TR. Severely elevated PASP, 91
mmHg.
Does not appear to be on diuretics at home.
Repeat two-view chest x-ray done 06/18 shows severe acute pulmonary edema. Small bilateral pleural effusions. Moderate cardiomegaly.
Lasix now on hold due to rising creatinine.
Cardiology following
s/p RHC 06/21 with fluid overload. Was on IV diuresis however creatinine continued to rise. Now holding Lasix. Nephrology managing
MIRLANDE on CKD 4 -baseline creatinine 2.2, creatinine 4.4 today. Etiology of MIRLANDE possibly due to cardiorenal syndrome from heart failure.
Nephrology following, if do not improve then might need dialysis
Hold losartan.
Dr Leavitt spoke with nephrology, appears to have progressive kidney disease of her transplant. No evidence of rejection on biopsy previously.
monitor tac level
Hyponatremia-monitor sodium. Probably related to hypervolemia and/or MIRLANDE.
Acute bronchitis -symptoms improved. Likely viral syndrome. Finished prednisone. cw as needed nebs, Mucinex, Tessalon Perles.
No evidence of pneumonia on chest x-ray. Not hypoxic, not requiring oxygen.
Troponin elevation -without chest pain. Cardiology feels that she may have type II [place] due to demand in the setting of heart failure exacerbation.
Troponin trending down. Received 48 hrs. of IV heparin.
History of living related donor renal transplant 2008 -continue immunosuppression. monitor Tacrolimus level
Polycystic kidney disease-continue to monitor kidney function
Essential hypertension -blood pressures somewhat labile but stable. Continue current meds.
Hypothyroidism -continue levothyroxine.
TSH 6.05, free T4 1.6.
Levothyroxine dose increased from [address] Leavitt discussed with patient.
CAD-continue current anti-ischemic regimen
GERD/Blackburn's esophagus/GAVE-stable
Primary biliary cirrhosis-stable
Sj�gren's syndrome-stable
Diverticulosis-stable
Chronic normocytic anemia -hemoglobin stable at 7.9 today. 8.9 on admission. No evidence of bleeding. Monitor for now.
on IV iron
Obesity due to excess calories
Full code
Anticipated Discharge: 24 - 48 hours
Subjective/Interval History
-
Date of Service: June 25, 2025
denies pain
Objective Data
-
Labs:
Laboratory Results
06/25/25
07:28
WBC 8.6
Hgb 7.9 L
Hct 24.1 L
Plt Count 211
Sodium 135
Potassium 4.2
Chloride 105
Carbon Dioxide 23
BUN 88 H
Creatinine 4.4 H*
Glucose 82
Calcium 8.5
Vital Signs:
Vital Signs
Temp Pulse Resp BP Pulse Ox
97.4 F 63 16 141/54 96
06/25/25 07:50 06/25/25 07:50 06/25/25 07:50 06/25/25 07:50 06/25/25 07:50
I&O
06/24/25 06/25/25 06/26/25
06:59 06:59 06:59
Intake Total 1635 / 1635 1070 / 1070 240 / 240
Output Total 700 / 700 1075 / 1075 300 / 300
Balance 935 / 935 -5 / -5 -60 / -60
--- NOTE | 2025-06-25 12:59 | W.PN.NEPH.PH ---
Today's Communication / Plan
-
follow labs off diuresis
Assessment/Plan
-
Assessment
Living related renal transplant 2008
CKD 4 with subnephrotic range proteinuria baseline creatinine 2.2
Pulm edema, lower extreme edema
Hypertension
Hypothyroidism
Primary biliary cirrhosis
Sjogren's
MIRLANDE
Heart failure reduced ejection fraction 30% on February 28, 2025 echocardiogram
Plan
MIRLANDE-cr peak at 4.6, today abetter at 4.4 and non oliguric
cont to hold lasix
It is more concerning that clinically she seems euvolemic but on paper is grossly volume overloaded.
Difficult to justify need for aggressive diuresis currently
chr met acidosis on po bicarb-stable
IV iron course
FK level at 10 on 06/21, however was very stable chronically with out dose adjustment-will follow repeat today
Reviewed with pt that we do not have clear etiology of MIRLANDE other than CRS
if renal function worsen likely need HD in next few days , hopefully can avoid this admit
She is not refusing dialysis
follow labs and UOP
d/w pt
-
-
Date of Service: June 25, 2025
CC / HPI / ROS
-
Chief Complaint:
MIRLANDE
History of Present Illness:
MIRLANDE/Cr better at 4.4, BUN 88 no cahnge
decompensated HF, weight no change off lasix
BP stable
hb low at 7.9 stable
Review of Systems:
no CP
no SOB at rest
no supplemental O2
Labs
-
Labs:
WBC 8.6 10^3/uL (4.8-10.8) 06/25/25 07:28
RBC 2.71 10^6/uL (4.20-5.40) L 06/25/25 07:28
Hgb 7.9 g/dL (12.0-16.0) L 06/25/25 07:28
Hct 24.1 % (37.0-47.0) L 06/25/25 07:28
Plt Count 211 10^3/uL (130-400) 06/25/25 07:28
Sodium 135 mmol/L (135-145) 06/25/25 07:28
Potassium 4.2 mmol/L (3.5-5.1) 06/25/25 07:28
Chloride 105 mmol/L (98-107) 06/25/25 07:28
Carbon Dioxide 23 mmol/L (22-30) 06/25/25 07:28
BUN 88 mg/dl (7-17) H 06/25/25 07:28
Creatinine 4.4 mg/dL (0.6-1.0) H* 06/25/25 07:28
eGFR 9.99 06/25/25 07:28
Glucose 82 mg/dl (70-99) 06/25/25 07:28
Calcium 8.5 mg/dl (8.4-10.2) 06/25/25 07:28
Phosphorus 3.5 mg/dl (2.5-4.5) 06/17/25 06:11
Usz-I-Lqdpymktsjl Pept > 83315 pg/ml 06/16/25 19:20
Albumin 3.1 g/dl (3.5-5.0) L 06/16/25 19:20
Physical Exam
-
Vital Signs:
Vital Signs
Temp Pulse Resp BP Pulse Ox
97.4 F 63 16 141/54 96
06/25/25 07:50 06/25/25 07:50 06/25/25 07:50 06/25/25 07:50 06/25/25 07:50
Cardiovascular:: Regular rate and rhythm
Respiratory:: Bilateral: Rales (at bases)
Lung Excursion:: Normal
Abdomen:: Nontender and Soft
Bowel Sounds:: Normal
Extremity Edema:: None: Bilateral:
Medrano Catheter: No
[2025-06-25 15:30] VITALS: BP 151/56
[2025-06-25] MEDS: PROGRAF 0.5 MG PO (21:23)
[2025-06-25 23:07] VITALS: BP 101/42
[2025-06-26 05:30] VITALS: BMI 30.1
[2025-06-26] MEDS: SYNTHROID 100 MCG PO (05:30)
[2025-06-26 07:13] VITALS: BP 140/52
[2025-06-26] MEDS: COREG 25 MG PO ×2 (09:29→20:16)
[2025-06-26] MEDS: ASPIR LOW (ENTERIC COATED) 81 MG PO (09:29)
[2025-06-26] MEDS: MUCINEX 600 MG PO ×2 (09:29→20:13)
[2025-06-26] MEDS: MYFORTIC DELAYED REL. 360 MG PO ×2 (09:29→20:16)
[2025-06-26] MEDS: SODIUM BICARBONATE 650 MG PO ×2 (09:29→20:16)
[2025-06-26] MEDS: SINGULAIR 10 MG PO (09:29)
[2025-06-26] MEDS: MAGNESIUM OXIDE 400 MG PO (09:29)
[2025-06-26] MEDS: URSO 500 MG PO ×2 (09:29→20:16)
[2025-06-26] MEDS: NON-FORMULARY ITEM 1 UNIT PO ×2 (09:29→20:12)
[2025-06-26] MEDS: APRESOLINE 25 MG PO ×2 (09:29→20:16)
[2025-06-26] MEDS: RESTASIS 0.05% OPHTHALMIC EMULSION 1 DROPS BOTH EYES ×2 (09:29→20:17)
[2025-06-26 10:28] LABS: Hematocrit 26.0 % (37.0-47.0); Hemoglobin 8.1 g/dL (12.0-16.0); Mean Corp Hgb Conc. 31.2 g/dL (33.0-37.0); Mean Corpuscular Volume 89.7 fL (81.0-99.0); Nucleated Red Blood Cells % 0 %; Platelet Count 215 10^3/uL (130-400); Red Cell Dist. Width 14.7 % (11.5-14.5)
--- NOTE | 2025-06-26 10:50 | W.PN.HOSP.TC ---
Today's Communication/Plan
-
Monitor vital signs see plan
Creatinine pending today, monitor renal function
Nephrology following
Assessment / Plan
Assessment / Plan
Gen-AAOx3, NAD
HEENT-NC, AT, anicteric, clear oral mm
Neck-supple
CV-reg, no M, +S1/S2
Lungs-clear bilaterally, no wheezes
Abd-soft, NT, ND
Ext-bilateral lower extremity edema
Neuro-grossly non-focal
Psych-calm, cooperative
A/P:
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 Hypokinesis of the mid to apical anterior, lateral, inferior mixon. Mild to moderate TR. Severely elevated PASP, 91
mmHg.
Does not appear to be on diuretics at home.
Repeat two-view chest x-ray done 06/18 shows severe acute pulmonary edema. Small bilateral pleural effusions. Moderate cardiomegaly.
Lasix now on hold due to rising creatinine.
Cardiology following
s/p RHC 06/21 with fluid overload. Was on IV diuresis however creatinine continued to rise. Now holding Lasix. Nephrology managing
MIRLANDE on CKD 4 -baseline creatinine 2.2, creatinine 4.4 yesterday, pending today. Etiology of MIRLANDE possibly due to cardiorenal syndrome from heart failure.
Nephrology following, if do not improve then might need dialysis
Hold losartan.
Dr Leavitt spoke with nephrology, appears to have progressive kidney disease of her transplant. No evidence of rejection on biopsy previously.
monitor tac level
Hyponatremia-monitor sodium. Probably related to hypervolemia and/or MIRLANDE.
Acute bronchitis -symptoms improved. Likely viral syndrome. Finished prednisone. cw as needed nebs, Mucinex, Tessalon Perles.
No evidence of pneumonia on chest x-ray. Not hypoxic, not requiring oxygen.
Troponin elevation -without chest pain. Cardiology feels that she may have type II CO due to demand in the setting of heart failure exacerbation.
Troponin trending down. Received 48 hrs. of IV heparin.
History of living related donor renal transplant 2008 -continue immunosuppression. monitor Tacrolimus level
Polycystic kidney disease-continue to monitor kidney function
Essential hypertension -blood pressures somewhat labile but stable. Continue current meds.
Hypothyroidism -continue levothyroxine.
TSH 6.05, free T4 1.6.
Levothyroxine dose increased from [address] Leavitt discussed with patient.
CAD-continue current anti-ischemic regimen
GERD/Blackburn's esophagus/GAVE-stable
Primary biliary cirrhosis-stable
Sj�gren's syndrome-stable
Diverticulosis-stable
Chronic normocytic anemia -hemoglobin stable at 8.1 today. 8.9 on admission. No evidence of bleeding. Monitor for now.
on IV iron
Obesity due to excess calories
Full code
Anticipated Discharge: Within 24 hours
Subjective/Interval History
-
Date of Service: June 26, 2025
Denies pain
Objective Data
-
Labs:
Laboratory Results
06/26/25
08:30
WBC 9.0
Hgb 8.1 L
Hct 26.0 L
Plt Count 215
Sodium Pending
Potassium Pending
Chloride Pending
Carbon Dioxide Pending
BUN Pending
Creatinine Pending
Glucose Pending
Calcium Pending
Vital Signs:
Vital Signs
Temp Pulse Resp BP Pulse Ox
97.3 F 60 16 140/52 98
06/26/25 07:13 06/26/25 07:13 06/26/25 07:13 06/26/25 07:13 06/26/25 07:13
I&O
06/25/25 06/26/25 06/27/25
06:59 06:59 06:59
Intake Total 1070 / 1070 1440 / 1440
Output Total 1075 / 1075 800 / 800
Balance -5 / -5 640 / 640
[2025-06-26 10:59] LABS: Blood Urea Nitrogen 92 mg/dl (7-17); Calcium 8.6 mg/dl (8.4-10.2); Carbon Dioxide 21 mmol/L (22-30); Chloride 105 mmol/L (98-107); Estimated Creatinine Clearance 10 ml/min; Glucose 76 mg/dl (70-99); Potassium 4.5 mmol/L (3.5-5.1); Sodium 134 mmol/L (135-145); eGFR 10.87
[2025-06-26 11:48] LABS: Iron 201 ug/dl (37-170)
[2025-06-26 11:56] LABS: Total Iron Binding Capacity 246 ug/dl (265-497)
--- NOTE | 2025-06-26 13:02 | W.PN.NEPH.PH ---
Today's Communication / Plan
-
follow lab s
Assessment/Plan
-
Assessment
Living related renal transplant 2008
CKD 4 with subnephrotic range proteinuria baseline creatinine 2.2
Pulm edema, lower extreme edema
Hypertension
Hypothyroidism
Primary biliary cirrhosis
Sjogren's
MIRLANDE
Heart failure reduced ejection fraction 30% on February 28, 2025 echocardiogram
Plan
MIRLANDE-cr peak at 4.6, today abetter at 4.1 and non oliguric
cont to hold lasix
though PCWP high at 30, but clinically she seems euvolemic
Difficult to justify need for aggressive diuresis currently
chr met acidosis on po bicarb-stable
IV iron course
FK level at 10 on 06/21, however was very stable chronically with out dose adjustment-will follow repeat 06/25
Reviewed with pt that we do not have clear etiology of MIRLANDE other than CRS
hopefully can avoid HD this admit
She is not refusing dialysis if needed
follow labs and UOP
d/w pt
If her cr cont to improve close to 3 likely ok for d/c
BMP in 3days and f/u Dr Velarde
-
-
Date of Service: June 26, 2025
CC / HPI / ROS
-
Chief Complaint:
MIRLANDE
History of Present Illness:
MIRLANDE/Cr better at 4.1, BUN up at 92
decompensated HF, weight no change off lasix
BP stable
hb low at 8.1 stable
Review of Systems:
no CP
no SOB at rest
no supplemental O2
Labs
-
Labs:
WBC 9.0 10^3/uL (4.8-10.8) 06/26/25 08:30
RBC 2.90 10^6/uL (4.20-5.40) L 06/26/25 08:30
Hgb 8.1 g/dL (12.0-16.0) L 06/26/25 08:30
Hct 26.0 % (37.0-47.0) L 06/26/25 08:30
Plt Count 215 10^3/uL (130-400) 06/26/25 08:30
Sodium 134 mmol/L (135-145) L 06/26/25 08:30
Potassium 4.5 mmol/L (3.5-5.1) 06/26/25 08:30
Chloride 105 mmol/L (98-107) 06/26/25 08:30
Carbon Dioxide 21 mmol/L (22-30) L 06/26/25 08:30
BUN 92 mg/dl (7-17) H 06/26/25 08:30
Creatinine 4.1 mg/dL (0.6-1.0) H* 06/26/25 08:30
eGFR 10.87 06/26/25 08:30
Glucose 76 mg/dl (70-99) 06/26/25 08:30
Calcium 8.6 mg/dl (8.4-10.2) 06/26/25 08:30
Phosphorus 3.5 mg/dl (2.5-4.5) 06/17/25 06:11
Hby-N-Sysrhcvhzfk Pept > 38987 pg/ml 06/16/25 19:20
Albumin 3.1 g/dl (3.5-5.0) L 06/16/25 19:20
Physical Exam
-
Vital Signs:
Vital Signs
Temp Pulse Resp BP Pulse Ox
97.3 F 60 16 140/52 98
06/26/25 07:13 06/26/25 07:13 06/26/25 07:13 06/26/25 07:13 06/26/25 07:13
Cardiovascular:: Regular rate and rhythm
Respiratory:: Bilateral: CTA
Lung Excursion:: Normal
Abdomen:: Nontender and Soft
Bowel Sounds:: Normal
Extremity Edema:: None: Bilateral: (trace)
Medrano Catheter: No
[2025-06-26] MEDS: PROGRAF 0.5 MG PO (20:53)
[2025-06-26] MEDS: TESSALON PERLES 200 MG PO (20:53)
[2025-06-26 23:12] VITALS: BP 122/51
[2025-06-27] MEDS: SYNTHROID 100 MCG PO (05:53)
[2025-06-27 06:00] VITALS: BMI 30.2
[2025-06-27] MEDS: SINGULAIR 10 MG PO (08:17)
[2025-06-27] MEDS: SODIUM BICARBONATE 650 MG PO (08:17)
[2025-06-27] MEDS: URSO 500 MG PO (08:17)
[2025-06-27] MEDS: MUCINEX 600 MG PO (08:18)
[2025-06-27] MEDS: MYFORTIC DELAYED REL. 360 MG PO (08:18)
[2025-06-27] MEDS: RESTASIS 0.05% OPHTHALMIC EMULSION 1 DROPS BOTH EYES (08:18)
[2025-06-27] MEDS: MAGNESIUM OXIDE 400 MG PO (08:18)
[2025-06-27] MEDS: NON-FORMULARY ITEM 1 UNIT PO (08:18)
[2025-06-27] MEDS: COREG 25 MG PO (08:19)
[2025-06-27 08:22] VITALS: BP 139/56
[2025-06-27] MEDS: APRESOLINE 25 MG PO (08:22)
[2025-06-27] MEDS: ASPIR LOW (ENTERIC COATED) 81 MG PO (08:22)
[2025-06-27] MEDS: PROGRAF 0.5 MG PO (08:25)
[2025-06-27] MEDS: VITAMIN D3 (cholecalciferol) 125 MCG PO (08:32)
--- NOTE | 2025-06-27 09:12 | W.PN.NEPH.PH ---
Today's Communication / Plan
-
Okay for discharge if creatinine comes down
With discharge patient off losartan and as her creatinine has not nadired to baseline
Follow-up BMP to Dr. Velarde in 3 days
Assessment/Plan
-
Assessment
Living related renal transplant 2008
CKD 4 with subnephrotic range proteinuria baseline creatinine 2.2
Pulm edema, lower extreme edema
Hypertension
Hypothyroidism
Primary biliary cirrhosis
Sjogren's
MIRLANDE
Heart failure reduced ejection fraction 30% on February 28, 2025 echocardiogram
Plan
MIRLANDE-cr peak at 4.6, today abetter at 4.1 and non oliguric
continue to hold lasix
though PCWP high at 30, but clinically she seems euvolemic
Difficult to justify need for aggressive diuresis currently
chr met acidosis on po bicarb-stable
IV iron course
FK level at 10 on 06/21, however was very stable chronically with out dose adjustment-will follow repeat 06/25
Reviewed with pt that we do not have clear etiology of MIRLANDE other than CRS
hopefully can avoid HD this admit
She is not refusing dialysis if needed
follow labs and UOP
d/w pt
If her cr cont to improve today she will be good for discharge
BMP in 3days and f/u Dr Velarde
-
-
Date of Service: June 27, 2025
CC / HPI / ROS
-
Chief Complaint:
MIRLANDE
History of Present Illness:
MIRLANDE/Cr better at 4.1, BUN up at 92 as of 06/27
decompensated HF, weight no change off lasix
BP stable
hb low at 8.1 stable
Review of Systems:
no CP
no SOB at rest
no supplemental O2
Labs
-
Labs:
eGFR 10.87 06/26/25 08:30
Phosphorus 3.5 mg/dl (2.5-4.5) 06/17/25 06:11
Akv-B-Lvzledonhqr Pept > 17222 pg/ml 06/16/25 19:20
Albumin 3.1 g/dl (3.5-5.0) L 06/16/25 19:20
Physical Exam
-
Vital Signs:
Vital Signs
Temp Pulse Resp BP Pulse Ox
97.8 F 60 16 139/56 96
06/27/25 08:22 06/27/25 08:22 06/27/25 08:22 06/27/25 08:22 06/27/25 08:22
Cardiovascular:: Regular rate and rhythm
Respiratory:: Bilateral: CTA
Lung Excursion:: Normal
Abdomen:: Nontender and Soft
Bowel Sounds:: Normal
Extremity Edema:: None: Bilateral: (trace)
Medrano Catheter: No
[2025-06-27 09:40] LABS: Hematocrit 25.3 % (37.0-47.0); Hemoglobin 8.3 g/dL (12.0-16.0); Mean Corp Hgb Conc. 32.8 g/dL (33.0-37.0); Mean Corpuscular Volume 88.2 fL (81.0-99.0); Nucleated Red Blood Cells % 0 %; Platelet Count 196 10^3/uL (130-400); Red Cell Dist. Width 14.9 % (11.5-14.5)
[2025-06-27 09:45] LABS: Blood Urea Nitrogen 92 mg/dl (7-17); Calcium 8.7 mg/dl (8.4-10.2); Carbon Dioxide 22 mmol/L (22-30); Chloride 106 mmol/L (98-107); Estimated Creatinine Clearance 10 ml/min; Glucose 99 mg/dl (70-99); Potassium 4.3 mmol/L (3.5-5.1); Sodium 136 mmol/L (135-145); eGFR 11.20
[2025-06-27 10:31] LABS: Tacrolimus (Prograft - FK506) 7.8 ng/mL
--- NOTE | 2025-06-27 11:12 | W.PN.HOSP.TC ---
Addendum entered and electronically signed by Carlos Spring MD 06/27/25 11:31:
Time of discharge 38 minutes
Original Note:
Today's Communication/Plan
-
Monitor vital signs and see plan
Discussed with nephrology, discharge today
BMP prescription provided
Patient to follow-up with Dr. Velarde closely outpatient
Assessment / Plan
Assessment / Plan
Gen-AAOx3, NAD
HEENT-NC, AT, anicteric, clear oral mm
Neck-supple
CV-reg, no M, +S1/S2
Lungs-clear bilaterally, no wheezes
Abd-soft, NT, ND
Ext-bilateral lower extremity edema
Neuro-grossly non-focal
Psych-calm, cooperative
A/P:
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 Hypokinesis of the mid to apical anterior, lateral, inferior mixon. Mild to moderate TR. Severely elevated PASP, 91
mmHg.
Does not appear to be on diuretics at home.
Repeat two-view chest x-ray done 06/18 shows severe acute pulmonary edema. Small bilateral pleural effusions. Moderate cardiomegaly.
Lasix now on hold due to rising creatinine.
Cardiology following
s/p RHC 06/21 with fluid overload. Was on IV diuresis however creatinine continued to rise. Now holding Lasix. Nephrology managing
MIRLANDE on CKD 4 -baseline creatinine 2.2, creatinine 4 today. Discussed with nephrology, okay to discharge home today. BMP prescription provided to be checked and fax results to Dr. Velarde in few days. Etiology of MIRLANDE possibly due to cardiorenal
syndrome from heart failure. 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
Nephrology following, if do not improve then might need dialysis
Hold losartan. Hold lasix on dc per nephrology
Dr Leavitt spoke with nephrology, appears to have progressive kidney disease of her transplant. No evidence of rejection on biopsy previously.
monitor tac level
Hyponatremia-monitor sodium. Probably related to hypervolemia and/or MIRLANDE.
Acute bronchitis -symptoms improved. Likely viral syndrome. Finished prednisone. cw as needed nebs, Mucinex, Tessalon Perles.
No evidence of pneumonia on chest x-ray. Not hypoxic, not requiring oxygen.
Troponin elevation -without chest pain. Cardiology feels that she may have type II NM due to demand in the setting of heart failure exacerbation.
Troponin trending down. Received 48 hrs. of IV heparin.
History of living related donor renal transplant 2008 -continue immunosuppression. monitor Tacrolimus level
Polycystic kidney disease-continue to monitor kidney function
Essential hypertension -blood pressures somewhat labile but stable. Continue current meds.
Hypothyroidism -continue levothyroxine.
TSH 6.05, free T4 1.6.
Levothyroxine dose increased from [address] Leavitt discussed with patient.
CAD-continue current anti-ischemic regimen
GERD/Blackburn's esophagus/GAVE-stable
Primary biliary cirrhosis-stable
Sj�gren's syndrome-stable
Diverticulosis-stable
Chronic normocytic anemia -hemoglobin stable at 8.3 today. 8.9 on admission. No evidence of bleeding. Monitor for now.
on IV iron
Obesity due to excess calories
Full code
Anticipated Discharge: Today
Subjective/Interval History
-
Date of Service: June 27, 2025
Denies pain
Objective Data
-
Labs:
Laboratory Results
06/27/25 06/27/25
07:50 09:25
WBC Cancelled 11.0 H
Hgb Cancelled 8.3 L
Hct Cancelled 25.3 L
Plt Count Cancelled 196
Sodium 136
Potassium 4.3
Chloride 106
Carbon Dioxide 22
BUN 92 H
Creatinine 4.0 H
Glucose 99
Calcium 8.7
Vital Signs:
Vital Signs
Temp Pulse Resp BP Pulse Ox
97.8 F 60 16 139/56 96
06/27/25 08:22 06/27/25 08:22 06/27/25 08:22 06/27/25 08:22 06/27/25 08:22
I&O
06/26/25 06/27/25 06/28/25
06:59 06:59 06:59
Intake Total 1440 / 1440 1020 / 1020
Output Total 800 / 800 1650 / 1650
Balance 640 / 640 -630 / -630
--- NOTE | 2025-06-27 11:29 | W.DCSUMMARY ---
Discharge Summary
Discharge Data
Date of Admission: 06/16/25
Date of Discharge: 06/27/25
-
Pending Results: No
Hospital Course
74-year-old female with past medical history of CKD stage IV, renal transplant on tacrolimus, polycystic kidney disease, essential hypertension, hypothyroidism, CAD, GERD, Blackburn's esophagus, primary biliary cirrhosis, Sjogren syndrome,
diverticulosis, chronic normocytic anemia, obesity, CHF came to the hospital with acute on chronic congestive heart failure exacerbation echocardiogram showed EF of 30 to 35%. Patient was seen by nephrology and cardiology throughout
hospitalization. Patient initially was started on IV Lasix however given her difficult volume status right heart cath was done which showed fluid overload. On IV Lasix patient creatinine continued to rise so nephrology help patient creatinine.
Her discharge creatinine was still above her baseline. Her discharge creatinine was 4. She does follow-up with nephrology outpatient and she was instructed to follow-up closely with them outpatient. She was given prescription for BMP to be
rechecked to ensure creatinine is improving. On discharge her losartan and Lasix was held per nephrology recommendation. On this hospitalization her TSH was also high so her levothyroxine was increased. She was instructed to get repeat blood work
with her primary care provider. She also had acute bronchitis. She was started on few days of steroids along with nebs which improved her symptoms. Once her symptoms continue to improve, she was then discharged home with instructions to follow-up
with all her physicians outpatient.
Discharge Plan
-
Patient Disposition: Home (Routine Discharge)
Discharge Diagnosis/Procedures: Acute on chronic heart failure with reduced EF
MIRLANDE on CKD 4
Hyponatremia
Acute bronchitis
Condition: Fair
Diet: Low Cholesterol and Restrict fluids to 48 oz
Activity: As tolerated
Driving Restrictions: As prior to admission
Bathing Restrictions: None
Blood Work: BMP in 3 days with nephrology; TSH with reflex to free T4 in 1 month with PCP
Instructions: *CBC Heart Failure Instructions
Stand Alone Forms: DC Instructions- Cath/EP Lab
Referrals:
Sorin Winn MD [Active, Cardiology] - in one week
Luigi Griffith MD [Family Provider, Family Practice] - in less than 1 week
RosaM Velarde MD [Active, Nephrology] - in less than 1 week
Prescriptions:
New
levothyroxine 100 mcg Tablet
100 mcg PO DAILY @ 0600 Qty: 30 0RF
guaifenesin 600 mg Tablet Extended Release 12hr
600 mg PO BID Qty: 14 0RF
acetaminophen 325 mg Tablet
650 mg PO Q4HPRN PRN (Reason: Mild Pain / Temp > 101) Qty: 0 0RF
hydralazine 25 mg Tablet
25 mg PO BID Qty: 60 0RF
Continued
esomeprazole magnesium [Nexium] 40 MG capsule,delayed release(DR/EC)
40 mg PO
lysine [L-Lysine] 500 MG tablet
500 mg PO .DAILY AT 1900
cyclosporine [Restasis] 1 EACH dropperette
1 ea BOTH EYES BID
fluticasone propionate 1 SPRAY spray,suspension
1 spray intranasal DAILY
tacrolimus 0.5 MG capsule
1 cap PO Q OTHER DAY
Rx Instructions:
every other day in the morning MWF
tacrolimus 0.5 MG capsule
1 cap PO HS
carvedilol 25 mg Tablet
25 mg PO BID
cevimeline 30 mg Capsule
1 cap PO TID
montelukast [Singulair] 10 mg Tablet
10 mg PO DAILY
aspirin 81 mg Tablet
81 mg PO DAILY
ursodiol 500 mg Tablet
500 mg PO BID
cholecalciferol (vitamin D3) [Vitamin D3] 125 mcg (5,000 unit) Tablet
125 mcg PO QMWF
Mycophenolate
360 mg PO BID
Vitamin B Complex
1 tab PO DAILY
magnesium
500 mg PO DAILY
cetirizine [Zyrtec] 10 mg Tablet
10 mg PO DAILY
sodium bicarbonate
650 mg PO BID
Rx Instructions:
5 tabs every AM. 4 tabs every PM.
zolpidem [Ambien] 5 mg Tablet
5 mg PO HS PRN (Reason: sleep)
Held
losartan [Cozaar] 50 MG tablet
50 mg PO BID Qty: 60 0RF
Hold Instructions: Restart when okay with nephrology
Discontinued
levothyroxine 88 MCG tablet
88 mcg PO DAILY
Discharge Orders:
Discharge Patient (As Directed); Ordered 06/27/25
Ordered By: Carlos Spring
Discharge Date and Time
Discharge Date/Time: 06/27/25 13:44
Print Language: LITHUANIAN
--- NOTE | 2025-06-27 12:08 | CM ---
Addendum entered by Yvette Garcia 06/27/25 12:24:
Discussion with [facility]- does not service zip code, declined referral
Pt declined search for alternative provider
Discharge Disposition- home, no needs
Original Note:
CM reviewed chart and noted dc order
Bedside meeting with pt
Discussed VN for CHF- she is in agreement
Referral to [facility] liaison
IMM verbally reviewed, copy provided
VN order requested
Discharge Disposition- home with [facility], family transport
[2025-06-27 12:57] VITALS: BP 145/59
== END 2025-06-27 13:44 | disposition home or self-care (01) | DRG 286 ==
LOC: 2 NORTH 22:09
PROVIDERS: Hospitalist; Internal Medicine; Physician Assistant; Student in an Organized Health Care Education/Training Program; ADMITTING PHYSICIAN Hospitalist; ATTENDING PHYSICIAN Internal Medicine; CONSULT PHYSICIAN Specialist; CONSULT PHYSICIAN Student in an Organized Health Care Education/Training Program; EMERGENCY PHYSICIAN Emergency Medicine; FAMILY PHYSICIAN Family Medicine
PROC: 4A023N6 Measurement of Cardiac Sampling and Pressure, Right Heart, Percutaneous Approach (ICD-10-PCS; 2025-06-21)
DX: I13.0 Hypertensive heart and chronic kidney disease with heart failure and stage 1 through stage 4 chronic kidney disease, or unspecified chronic kidney disease (principal); I50.23 Acute on chronic systolic (congestive) heart failure; N17.9 Acute kidney failure, unspecified; T86.19 Other complication of kidney transplant; Q61.2 Polycystic kidney, adult type; E87.22 Chronic metabolic acidosis; E87.1 Hypo-osmolality and hyponatremia; N18.4 Chronic kidney disease, stage 4 (severe); Z11.52 Encounter for screening for COVID-19; Y83.0 Surgical operation with transplant of whole organ as the cause of abnormal reaction of the patient, or of later complication, without mention of misadventure at the time of the procedure; I25.10 Atherosclerotic heart disease of native coronary artery without angina pectoris; K21.9 Gastro-esophageal reflux disease without esophagitis; K22.70 Barrett's esophagus without dysplasia; M35.00 Sjogren syndrome, unspecified; K74.3 Primary biliary cirrhosis; J20.9 Acute bronchitis, unspecified; E66.09 Other obesity due to excess calories; Z68.30 Body mass index [BMI] 30.0-30.9, adult; I5A Non-ischemic myocardial injury (non-traumatic); I27.20 Pulmonary hypertension, unspecified; I34.81 Nonrheumatic mitral (valve) annulus calcification; Z79.82 Long term (current) use of aspirin; Z79.899 Other long term (current) drug therapy; Z82.49 Family history of ischemic heart disease and other diseases of the circulatory system
CPT/HCPCS: 51798; 71045; 71046; 74176; 80048; 80053; 80061; 80197; 81003; 81015; 82570; 82728; 83540; 83550; 83735; 83880; 83935; 84100; 84300; 84439; 84443; 84484; 85014; 85018; 85025; 85027; 85730; 87502; 87811; 93005; 93308; 93321; 93325; 93451; 96365; 96366; 96375; 99285; C1769; C1894; J2916